=== PATIENT | female | born 1945 | race Caucasian/White ===

== ENCOUNTER → 2023-08-29 14:54 | Outpatient (REF) | payer MEDICARE, BC, SELFPAY | LOC: DHVS 14:54 | PROVIDERS: ATTENDING PHYSICIAN Surgery Vascular Surgery; FAMILY PHYSICIAN Internal Medicine Geriatric Medicine | DX: I77.9 Disorder of arteries and arterioles, unspecified (principal) | CPT/HCPCS: 36415; 93922; 93925 ==

== ENCOUNTER → 2023-11-29 13:39 | Outpatient (REF) | payer MEDICARE, BC, SELFPAY | LOC: HWRAD 13:39 | PROVIDERS: ATTENDING PHYSICIAN Podiatrist Foot & Ankle Surgery; FAMILY PHYSICIAN Internal Medicine Geriatric Medicine | DX: M19.072 Primary osteoarthritis, left ankle and foot (principal); M20.42 Other hammer toe(s) (acquired), left foot | CPT/HCPCS: 73630 ==

== ENCOUNTER → 2023-12-14 14:02 | Outpatient (REF) | payer MEDICARE, BC, SELFPAY | LOC: RAD 14:02 | PROVIDERS: ATTENDING PHYSICIAN Registered Nurse; FAMILY PHYSICIAN Internal Medicine Geriatric Medicine | DX: I77.9 Disorder of arteries and arterioles, unspecified (principal) | CPT/HCPCS: 93922; 93925 ==

== ENCOUNTER 2024-03-18 12:41 | Emergency (ER) | payer MEDICARE, BC, SELFPAY ==
[2024-03-18 12:44] VITALS: BP 126/68
[2024-03-18 13:47] VITALS: BMI 27.3
--- NOTE | 2024-03-18 13:51 | ED.GENMED ---
History of Present Illness
General
Chief Complaint: Fall
Source: patient and family (sister with her)
Exam Limitations: none
Time Seen by Provider: 03/18/24 13:02
Nursing documentation reviewed up to this point in time: agreed with
History of Present Illness
History of Present Illness:
78yo female from [place] is here with her sister who states pt was confused for a short period this a[place]m. [place] the [place]. Pt remembers feeling confused, denies feeling confused now. Sister agrees, she's back to 'normal. \\' Pt
denies fever/chills. Denies SOB, CP, abd pain. Denies n/v/c. Had one episode diarrhea 2 days ago then few little squirts since (on Augmentin).
Is being treated for sores on her toes, followed by VN 3 times a week: Was on Doxycycline 100 mg BID for 7 days, stopped after 5 days when toe wound cx came back sensitive to Augmentin and has had total of 4 doses Augmentin.
Past History
Past History
ED Past Medical History: GERD, HTN, Hypercholesterolemia, IDDM and Other (Rheumatoid arthritis)
ED Past Surgical History: Orthopedic
Social History
Tobacco: Non-smoker
Alcohol: None
Personal: Single
Living: alone ([facility])
Family History
Family History: Other (Nonsignificant)
Review of Systems
Review of Systems
Allergies reviewed?: Yes
All Other Systems: ROS reviewed and negative except as documented in HPI and ROS
Constitutional: Denies fever, fatigue or chills
Respiratory: Denies trouble breathing
Cardiac: Denies chest pain or syncope
ABD/GI: Reports diarrhea; Denies abdominal pain, nausea, vomiting or anorexia
: Denies dysuria, frequency, flank pain, incontinence, difficulty voiding or urgency
Musculoskeletal: Denies edema
Skin: Reports other (wounds toes both feet)
Neurological: Denies dizzy, headache, weakness or numbness
Phy Exam
Physical Exam
Physical Exam:
GENERAL: No acute distress. A&Ox3.
CONSTITUTIONAL: Afebrile.
EYES: PERRL, conjunctivae normal
ENMT: moist mucus membranes, Pharynx nl
RESPIRATORY: Regular respirations, nonlabored, lungs clear.
CARDIOVASCULAR: Regular rate and rhythm, no murmurs, no rubs.
GI: Soft, nontender, normal BS
MUSCULOSKELETAL: No spinal bony tenderness. No edema. Moves with ease. Well perfused.
SKIN: Warm, dry, pink. Dressing intact toes.
PSYCH: Normal mood and affect. Well kept, interactive and appropriate
NEUROLOGIC: Awake, alert and oriented. No focal neurological deficits
Course
Orders/Labs/Results
Orders:
Orders
03/18/24 14:09
Complete Blood Count/With Diff Urgent
Comprehensive Metabolic Panel Urgent
Urinalysis Reflex To Culture Urgent
Date Specimen was Collected: 03/18/24
Time Specimen was Collected: 14:07
03/18/24 14:56
CT Head W/o Iv Contrast Urgent
Comment:
Reason For Exam: episode confusion, hit head/fall 16 da ago, no ac
Abnormal Lab Results
03/18/24
14:09
RBC 4.03 L 10^6/uL
(4.20-5.40)
MCH 33.3 H pg
(27.0-31.0)
MPV 11.4 H fL
(7.4-10.4)
Absolute Neuts (auto) 8.1 H 10^3/uL
(1.4-6.5)
Absolute Lymphs (auto) 1.0 L 10^3/uL
(1.2-3.4)
Absolute Monos (auto) 0.7 H 10^3/uL
(0.1-0.6)
Neutrophils % 78.9 H %
(42.2-75.2)
Lymphocytes % 10.0 L %
(20.5-51.1)
BUN 18 H mg/dl
(7-17)
Glucose 275 H mg/dl
(70-99)
AST 44 H U/L
(14-36)
ALT 76 H U/L
(0-35)
Total Protein 6.2 L g/dl
(6.3-8.2)
Urine Glucose 3+ A
(Negative)
03/18/24 14:09
03/18/24 14:09
Vital Signs
Initial and Last Documented VS:
Initial Vital Signs
Temp Pulse Resp BP Pulse Ox
98.0 F 83 16 126/68 98
03/18/24 12:44 03/18/24 12:44 03/18/24 12:44 03/18/24 12:44 03/18/24 12:44
Last Documented Vital Signs
Temp Pulse Resp BP Pulse Ox
98.0 F 83 16 126/68 98
03/18/24 12:44 03/18/24 12:44 03/18/24 12:44 03/18/24 12:44 03/18/24 12:44
MDM/Problems Addressed
MDM/Problems Addressed:
78yo female from [place] is here with her sister who states pt was confused for a short period this a.m. thinking [place] was [place] the mall. Pt remembers feeling confused, denies feeling confused now. Sister agrees, she's back to 'normal. \\' Pt
denies fever/chills. Denies SOB, CP, abd pain. Denies n/v/c. Had one episode diarrhea 2 days ago then few little squirts since (on Augmentin).
Is being treated for sores on her toes, followed by VN 3 times a week: Was on Doxycycline 100 mg BID for 7 days, stopped after 5 days when toe wound cx came back sensitive to Augmentin and has had total of 4 doses Augmentin.
Afebrile, NAD
2:30 p.m.
CBC unremarkable
CMP glucose 275, mild elevation AST/ALT, she has had this before, otherwise normal
U/A neg
Pt fell 16 days ago: slid off bed, no significant injury
Fell 14 days ago, stumbled backwards and lost balance as she sometimes does, hit right side of head 14 days ago. No LOC, pushed her call button and staff helped her up, no significant injury
Not anticoagulated
Will check head CT
4:[address]: no acute finding
Pt stable for discharge
Ambulating steadily in room
Sister will take her home.
Pt has appointment with Neurology Dr. Noel in Nov for 'mild cognitive decline' per her sister
*Critical Care Note
Total Time (30-74mins, 75-104mins- exclusive of procedures): Not Applicable
ED Attending Note
-
Portions of this chart may have been created with voice recognition software.� Occasional wrong word or��sound alike� substitutions may have occurred due to the inherent limitations of voice recognition software.
Discharge Plan
Departure
Patient Disposition: Home (Routine Discharge)
Date of Disposition: 03/18/24
Time of Disposition: 16:48
Patient with high blood pressure during this ER visit?: No
Condition: Good
Discharge Problem:
Episode of confusion
Instructions: Preventing falls in adults
Prescriptions:
No Action
insulin aspart U-100 [Novolog FlexPen U-100 Insulin] 300 UNITS/3 ML insulin pen
34 units SC BID@0800,1200
duloxetine 60 MG capsule,delayed release(DR/EC)
60 mg PO DAILY
Actemra
1 dose IV Q4W
latanoprost 0.005 % Drops
1 drp BOTH EYES HS
cholecalciferol (vitamin D3) [Vitamin D3] 25 mcg (1,000 unit) Tablet
25 mcg PO QPM
insulin glargine [Lantus U-100 Insulin] 1,000 UNITS/10 ML solution
30 units SC HS
insulin aspart U-100 [Novolog FlexPen U-100 Insulin] 100 unit/mL (3 mL) Insulin Pen
36 unit SC QPM
atorvastatin 10 mg Tablet
10 mg PO QPM Qty: 90 0RF
losartan 50 mg Tablet
50 mg PO DAILY
methylprednisolone 2 mg Tablet
2 mg PO DAILY
naproxen sodium [Aleve] 220 mg Tablet
220 mg PO [id number] PRN (Reason: mild pain)
dorzolamide 2 % Drops
1 drp BOTH EYES BID
pregabalin 150 mg Capsule
150 mg PO BID
aspirin 81 mg tablet,delayed release (DR/EC)
81 mg PO NOON
Referrals:
Madison Weinstein MD [Family Provider] -
Activity Restrictions/Additional Instructions:
As we discussed, nothing worrisome in your workup here today.
You may benefit from using a walker or cane to prevent falling
Interventions
Interventions:
*Risk Screen - Suicide Last Done: 03/18/24 13:47
*General Assessment Last Done: 03/18/24 13:47
*Neglect/Abuse Screening Last Done: 03/18/24 13:47
ED- Fall Risk Assessment Last Done: 03/18/24 14:23
*Nursing Disposition Last Done: 03/18/24 17:04
ED- Neurological Assessment Last Done: 03/18/24 13:47
Discharge Date and Time
Discharge Date/Time: 03/18/24 17:06
Print Language: ROMANIAN
[2024-03-18 14:30] LABS: Urine Albumin Negative (Neg - Trace); Urine Bilirubin Negative (Negative); Urine Character Clear (Clear); Urine Color Yellow; Urine Glucose 3+ (Negative); Urine Ketone Negative (Negative); Urine Leukocyte Negative (Negative); Urine Nitrite Negative (Negative); Urine Occult Blood Negative (Negative); Urine Specific Gravity 1.015 (<1.030); Urine Urobilinogen Negative (Neg - 1+)
[2024-03-18 14:35] LABS: % Basophils 0.7 % (0-2); % Eosinophils 3.1 % (0-6); % Immature Granulocytes 0.2 % (0-0.5); % Monocytes 7.1 % (1.7-9.3); % Neutrophils 78.9 % (42.2-75.2); Absolute Basophils 0.1 10^3/uL (0-0.2); Absolute Eosinophils 0.3 10^3/uL (0-0.7); Absolute Monocytes 0.7 10^3/uL (0.1-0.6); Absolute Neutrophils 8.1 10^3/uL (1.4-6.5); Hematocrit 39.9 % (37.0-47.0); Hemoglobin 13.4 g/dL (12.0-16.0); Mean Corp Hgb Conc. 33.6 g/dL (33.0-37.0); Mean Corpuscular Hgb 33.3 pg (27.0-31.0); Mean Platelet Volume 11.4 fL (7.4-10.4); Nucleated Red Blood Cells % 0 %; Platelet Count 162 10^3/uL (130-400); Red Blood Cell Count 4.03 10^6/uL (4.20-5.40); Red Cell Dist. Width 14.2 % (11.5-14.5); White Blood Cell Count 10.3 10^3/uL (4.8-10.8)
[2024-03-18 14:39] LABS: ALT (SGPT) 76 U/L (0-35); AST (SGOT) 44 U/L (14-36); Albumin 3.9 g/dl (3.5-5.0); Alkaline Phosphatase 110 U/L (38-126); Blood Urea Nitrogen 18 mg/dl (7-17); Calcium 9.4 mg/dl (8.4-10.2); Carbon Dioxide 30 mmol/L (22-30); Chloride 103 mmol/L (98-107); Estimated Creatinine Clearance 65 ml/min; Glucose 275 mg/dl (70-99); Potassium 3.9 mmol/L (3.5-5.1); Sodium 142 mmol/L (135-145); Total Bilirubin 0.8 mg/dl (0.2-1.3); Total Protein 6.2 g/dl (6.3-8.2); eGFR > 60.00
== END 2024-03-18 17:06 | disposition home or self-care (01) ==
LOC: EMR 12:41
PROVIDERS: Registered Nurse; EMERGENCY PHYSICIAN Emergency Medicine; FAMILY PHYSICIAN Internal Medicine Geriatric Medicine
DX: R41.0 Disorientation, unspecified (principal); K21.9 Gastro-esophageal reflux disease without esophagitis; I10 Essential (primary) hypertension; E78.00 Pure hypercholesterolemia, unspecified; E11.9 Type 2 diabetes mellitus without complications; M06.9 Rheumatoid arthritis, unspecified
CPT/HCPCS: 99284; 70450; 80053; 81003; 85025

== ENCOUNTER 2024-04-15 05:22 | Emergency (ER) | payer MEDICARE, BC, SELFPAY ==
[2024-04-15 05:28] VITALS: BP 169/98
[2024-04-15 05:35] VITALS: BMI 27.0
--- NOTE | 2024-04-15 07:08 | ED.GENMED ---
History of Present Illness
General
Chief Complaint: Nose Bleed
Source: patient
Time Seen by Provider: 04/15/24 06:13
History of Present Illness
History of Present Illness:
78-year-old female presents to the emergency room complaining of nosebleed. Patient has had 3 episodes of epistaxis over the past 24 hours. Blood coming from her right nare. She does not take any anticoagulants. She does not recall any trauma.
Past History
Past History
ED Past Medical History: GERD, HTN, Hypercholesterolemia, IDDM and Other (Rheumatoid arthritis)
ED Past Surgical History: Orthopedic
Social History
Tobacco: Non-smoker
Alcohol: None
Personal: Single
Living: alone ([facility])
Family History
Family History: Other (Nonsignificant)
Phy Exam
Physical Exam
Physical Exam:
General: Awake, Alert, Oriented X3. No acute distress.
Vitals: unremarkable
Head: Atraumatic
Eyes: Pupils equal, EOMI
Throat: Airway intact, no exudates
Nose: Area of punctate bleeding noted anterior right septum.
Neck: Trachea midline
Lungs: Clear and equal b/l
Heart: Regular rate, no murmurs
Neuro: Grossly nonfocal
Skin: Warm, dry, no rash
Extremities: pulses equal b/l, no edema
Course
Vital Signs
Initial and Last Documented VS:
Initial Vital Signs
Temp Pulse Resp BP Pulse Ox
97.8 F 77 19 169/98 98
04/15/24 05:28 04/15/24 05:28 04/15/24 05:28 04/15/24 05:28 04/15/24 05:28
Last Documented Vital Signs
Temp Pulse Resp BP Pulse Ox
97.8 F 72 18 156/86 97
04/15/24 05:28 04/15/24 08:21 04/15/24 08:21 04/15/24 08:21 04/15/24 08:21
Procedures
Nosebleed
Drug treatment: Lidocaine and Epinephrine
Treatment: local pressure applied and Silver nitrate cautery
Post treatment bleeding: none- good control
MDM/Problems Addressed
Differential Diagnosis Includes:
Epistaxis from AVM, septal injury, posterior epistaxis
MDM/Problems Addressed:
Physical exam revealed a punctate area of bleeding noted on the septum. It was not bleeding initially but with manipulation did begin bleeding. This area was first treated with topical lidocaine and topical epinephrine. It was then treated with
silver nitrate cautery. Bleeding was stopped. Patient will follow-up with ENT. Instructed to avoid touching the area. Use direct pressure if bleeding returns.
*Pulse Oximetry
Patient hypoxic: no
*Critical Care Note
Total Time (30-74mins, 75-104mins- exclusive of procedures): Not Applicable
ED Attending Note
-
Portions of this chart may have been created with voice recognition software.� Occasional wrong word or��sound alike� substitutions may have occurred due to the inherent limitations of voice recognition software.
Discharge Plan
Departure
Patient Disposition: Home (Routine Discharge)
Date of Disposition: 04/15/24
Time of Disposition: 07:41
Patient with high blood pressure during this ER visit?: Yes
Condition: Good
Discharge Problem:
Acute anterior epistaxis
Instructions: Nosebleeds (DC)
Prescriptions:
No Action
insulin aspart U-100 [Novolog FlexPen U-100 Insulin] 300 UNITS/3 ML insulin pen
34 units SC BID@0800,1200
duloxetine 60 MG capsule,delayed release(DR/EC)
60 mg PO DAILY
Actemra
1 dose IV Q4W
latanoprost 0.005 % Drops
1 drp BOTH EYES HS
cholecalciferol (vitamin D3) [Vitamin D3] 25 mcg (1,000 unit) Tablet
25 mcg PO QPM
insulin glargine [Lantus U-100 Insulin] 1,000 UNITS/10 ML solution
30 units SC HS
insulin aspart U-100 [Novolog FlexPen U-100 Insulin] 100 unit/mL (3 mL) Insulin Pen
36 unit SC QPM
atorvastatin 10 mg Tablet
10 mg PO QPM Qty: 90 0RF
losartan 50 mg Tablet
50 mg PO DAILY
methylprednisolone 2 mg Tablet
2 mg PO DAILY
naproxen sodium [Aleve] 220 mg Tablet
220 mg PO [id number] PRN (Reason: mild pain)
dorzolamide 2 % Drops
1 drp BOTH EYES BID
pregabalin 150 mg Capsule
150 mg PO BID
aspirin 81 mg tablet,delayed release (DR/EC)
81 mg PO NOON
Referrals:
Aura Flores MD [Family Provider] -
Yogesh Dowling MD [Active] -
Activity Restrictions/Additional Instructions:
Please follow up with ENT doctor. The site of bleeding is toward the front of the septum on the right. This is very susceptible to rubbing or picking so do not touch this side of your nose. If the bleeding starts again apply pressure for 20 to
30 minutes non-stop. This should control the bleeding. Return to the ER if you cannot get it to stop on your own with pressure.
Interventions
Interventions:
*Risk Screen - Suicide Last Done: 04/15/24 05:25
*General Assessment Last Done: 04/15/24 05:25
*Neglect/Abuse Screening Last Done: 04/15/24 05:25
ED- Fall Risk Assessment Last Done: 04/15/24 05:35
*ED COVID-19 Vaccine History Last Done: 04/15/24 05:25
*Nursing Disposition Last Done: 04/15/24 08:21
ED-EENT Assessment Last Done: 04/15/24 05:35
Discharge Date and Time
Discharge Date/Time: 04/15/24 08:22
Print Language: TANZANIAN
[2024-04-15 08:21] VITALS: BP 156/86
== END 2024-04-15 08:22 | disposition home or self-care (01) ==
LOC: EMR 05:22
PROVIDERS: EMERGENCY PHYSICIAN Emergency Medicine; FAMILY PHYSICIAN Internal Medicine Geriatric Medicine
DX: R04.0 Epistaxis (principal); I10 Essential (primary) hypertension; E78.00 Pure hypercholesterolemia, unspecified; E11.9 Type 2 diabetes mellitus without complications; M06.9 Rheumatoid arthritis, unspecified; K21.9 Gastro-esophageal reflux disease without esophagitis; Z79.4 Long term (current) use of insulin; Z79.82 Long term (current) use of aspirin
CPT/HCPCS: 99283; 30901

== ENCOUNTER 2024-05-06 17:09 | Inpatient (IN) | payer MEDICARE, BC, SELFPAY ==
[2024-05-06] VITALS (38 sets, daily range): BP systolic 81–163; BP diastolic 43–100
--- NOTE | 2024-05-06 10:43 | ED.GENMED ---
History of Present Illness
General
Chief Complaint: Fever
Time Seen by Provider: 05/06/24 10:32
History of Present Illness
History of Present Illness:
78-year-old female with history of hypertension hyperlipidemia as well as type 2 diabetes presents to the emergency department for evaluation of fever and altered mental status beginning this morning. Patient is profoundly encephalopathic cannot
provide any history. Per her sister she was in her normal state of health yesterday and apparently was found by nursing facility staff without close sitting in a chair in her room this morning. She does have mild underlying confusion on occasion
and had been planned to schedule a neurology visit to evaluate this further.
Past History
Past History
ED Past Medical History: GERD, HTN, Hypercholesterolemia, IDDM and Other (Rheumatoid arthritis)
ED Past Surgical History: Orthopedic
Social History
Tobacco: Non-smoker
Alcohol: None
Personal: Single
Living: alone ([facility])
Family History
Family History: Other (Nonsignificant)
Review of Systems
Review of Systems
Allergies reviewed?: Yes
All Other Systems: ROS reviewed and negative except as documented in HPI and ROS
Phy Exam
Physical Exam
Physical Exam:
GEN: Ill-appearing, somnolent
Eyes: PERRLA, EOMs intact, no scleral icterus
HENT: NCAT, oral mucosa moist
Lungs: CTAB, no wheezes, rales, rhonchi, normal chest wall excursion
Cardiac: Tachycardic, regular
Abdomen: Protuberant abdomen, nonrigid
Neuro: Somnolent, arouses to loud verbal stimulus, profoundly confused and disoriented, withdraws to pain x 4 extremities
MSK: No gross deformity or ecchymosis. No edema. No digital clubbing
Skin: No rashes, petechiae. Normal color, no pallor or jaundice.
Psych: Mildly agitated on exam but redirectable
Course
Orders/Labs/Results
Orders:
Orders
05/06/24 10:41
Straight cath- Treatment ONCE
0.9% Sodium Chloride 1000 ml [Nss] 1,000 ml IV BOLUS
Acetaminophen [Tylenol/Feverall] 975 mg RECTAL NOW STA
05/06/24 10:42
CR Chest Portable - 1 View Urgent
Comment:
Reason For Exam: sepsis
Reason Study Needs to be Portable: Patient Unstable
05/06/24 10:54
Basic Metabolic Panel Urgent
COVID-19 Antigen Urgent
Source: Nasal Swab
Comprehensive Metabolic Panel Routine
Comment: ORDER PER [id number]
Lactic Acid Q4H
Comment: CANCEL 2nd LACTIC ACID IF 1st LACTIC ACID IS LESS THAN 2
Prothrombin Time Urgent
Urinalysis Reflex To Culture Urgent
Date Specimen was Collected: 05/06/24
Time Specimen was Collected: 10:51
Urine Microscopic Reflex Cult Urgent
Blood Culture Routine
RK Source: Blood/Venous
Specimen Description:
Blood Culture Urgent
RK Source: Blood/Venous
Specimen Description:
Influenza A+B Rapid Molecular Urgent
RK Source: Nasal Swab
Specimen Description:
05/06/24 11:28
Complete Blood Count/With Diff Urgent
Manual Differential Urgent
05/06/24 12:08
CT Head W/o Iv Contrast Urgent
Comment:
Reason For Exam: AMS
05/06/24 12:31
0.9% Sodium Chloride 1000 ml [Nss] 1,000 ml IV BOLUS
05/06/24 12:46
CT Chest/abd/pel W Iv Cont Urgent
Comment:
Reason For Exam: sepsis no source
05/06/24 13:00
Electrocardiogram (*1) Urgent
Reason for Study: QTc Monitoring
EKG- Treatment ONCE
05/06/24 14:41
Acetaminophen 1000MG/100Ml [Ofirmev] 1,000 mg in 100 ml IV ONCE
Acetaminophen IV Indication:: ED Narcotic Naive Pt-ONCE
05/06/24 14:43
Piperacillin/Tazo 3.375 Gram [Zosyn] 3.375 gram in 50 ml IV NOW
05/06/24 14:49
Vancomycin [Vancocin] 1,500 mg 0.9% Sodium Chloride [Nss] 20 ml 0.9% Sodium Chloride 250 ml [Nss] 250 ml IV NOW
05/06/24 14:50
Lactic Acid Q4H
Comment: CANCEL 2nd LACTIC ACID IF 1st LACTIC ACID IS LESS THAN 2
Venous Blood Gas Urgent
%Oxygen/Room Air: 85
05/06/24 15:21
CefTRIAXone [Rocephin] 2,000 mg IV NOW STA
05/06/24 15:35
Sterile Water [Sterile Water For Injection] 20 ml .ROUTE .STK-MED
05/06/24 15:55
Acyclovir [Zovirax Injection] 800 mg 0.9% Sodium Chloride 250 ml [Nss] 250 ml IV NOW
Abnormal Lab Results
05/06/24 05/06/24 05/06/24
10:54 10:54 10:54
WBC
RBC
MCH
MPV
Abs Neuts (Manual)
Band Neutrophils
Lymphocytes (Manual)
PT 17.7 H Sec
(11.4-14.6)
VBG pH
VBG pO2
VBG HCO3
Carbon Dioxide 17 L mmol/L 17 L mmol/L
(22-30) (22-30)
BUN 22 H mg/dl 21 H mg/dl
(7-17) (7-17)
Glucose 292 H mg/dl
(70-99)
Lactic Acid
AST
ALT
Alkaline Phosphatase
Total Protein
Leukocyte Esterase Rfl
Urine Bacteria (Reflex)
Urine Glucose
05/06/24 05/06/24 05/06/24
10:54 11:28 14:50
WBC 23.7 H 10^3/uL
(4.8-10.8)
RBC 3.91 L 10^6/uL
(4.20-5.40)
MCH 33.0 H pg
(27.0-31.0)
MPV 10.9 H fL
(7.4-10.4)
Abs Neuts (Manual) 22.2 H 10^3/uL
(1.4-6.5)
Band Neutrophils 28 H %
(0-3)
Lymphocytes (Manual) 0 L %
(20-51)
PT
VBG pH 7.30 L
(7.32-7.43)
VBG pO2 182 H mmHg
(30-50)
VBG HCO3 19.2 L mmol/L
(22-27)
Carbon Dioxide
BUN
Glucose 271 H mg/dl
(70-99)
Lactic Acid 6.3 H* mmol/L 5.2 H* mmol/L
(0.7-2.0) (0.7-2.0)
AST 47 H U/L
(14-36)
ALT 72 H U/L
(0-35)
Alkaline Phosphatase 154 H U/L
(38-126)
Total Protein 6.0 L g/dl
(6.3-8.2)
Leukocyte Esterase Rfl Trace A
(Negative)
Urine Bacteria (Reflex) Few A
(Negative)
Urine Glucose Trace A
(Negative)
05/06/24 11:28
05/06/24 10:54
Vital Signs
Initial and Last Documented VS:
Initial Vital Signs
BP Pulse Ox
155/58 86
05/06/24 10:33 05/06/24 10:33
Last Documented Vital Signs
Temp Pulse Resp BP Pulse Ox
102.6 F H 132 31 152/100 97
05/06/24 13:27 05/06/24 14:45 05/06/24 14:45 05/06/24 14:30 05/06/24 14:29
Procedures
Lumbar Puncture
Indication for procedure:: Fever/encephalopathy/r/o meningitis
Procedure completed by: Edy Her PA-C
Consent form signed: No
If no, reason: Emergency procedure
Anesthesia/sedation: 1% Lidocaine
Preparation: cleaned with Hibiclens
Position: decubitis
Needle Size: 18 gauge
Needle Type: Lumbar Needle
Number of attempts: 2
Unsuccessful atempt - no CSF obtained: Unsuccessful x 2
Dressing applied to puncture site: bandaid
MDM/Problems Addressed
MDM/Problems Addressed:
78-year-old female presents with severe sepsis of unclear etiology. Initially antibiotics were not given upfront as there was concern for potential meningitis however as the patient continued to decline with increased encephalopathy and increased
work of breathing we opted to give antibiotics upfront as lumbar puncture was being attempted. Unfortunately lumbar puncture was unsuccessful x 2 performed by myself on the basis of patient's severe arthritis and body habitus. Meningitis dose
antibiotics were then given empirically. There is no clear evidence on imaging or urinalysis of clear source, she does have lower extremity foot ulcers however none of these look to be severely infected, could certainly cause her to develop
bacteremia however. Case was discussed with the patient's sister who is also her power of assistant district attorney, she will be a DNR/DNI for hospital stay. She remained tachycardic but blood pressure remained stable in the ED, lactic acid downtrending with fluid
resuscitation. Will be admitted to the hospitalist service for further management
Comment
Comment:
EKG independently interpreted by me shows normal sinus rhythm at a rate of 108 with a incomplete right bundle branch block, there is mild ST elevation in lead III as well as mild ST depression laterally that is likely an subendocardial ischemia
secondary to sepsis
*Critical Care Note
Total Time (30-74mins, 75-104mins- exclusive of procedures): 85 minutes
comment:
Critical care time: 85 minutes
Critical care time was exclusive of: Separately billable procedures, treating other patients, and teaching time
Critical care was necessary to treat or prevent imminent or life-threatening deterioration of the following conditions: Severe sepsis/septic shock
Critical care time spent personally by me on the following activities:
[x] Review of old charts
[x] Obtaining history from patient or surrogate
[x] Ordering and review of the laboratory studies
[x] Ordering and review of radiographic studies
[x] Ordering and performing treatments and interventions
[x] Patient patient's response to treatment
[x] Development of treatment plan with patient or surrogate
ED Attending Note
-
Portions of this chart may have been created with voice recognition software.� Occasional wrong word or��sound alike� substitutions may have occurred due to the inherent limitations of voice recognition software.
Discharge Plan
Departure
Patient Disposition: Admit
Date of Disposition: 05/06/24
Time of Disposition: 15:23
Admit to: IMU
Presentation/result/management discussed w/ accepting MD/DO: Hospitalist
Discharge Problem:
Severe sepsis
Prescriptions:
No Action
insulin aspart U-100 [Novolog FlexPen U-100 Insulin] 300 UNITS/3 ML insulin pen
36 units SC TID@0830,1230,1630
duloxetine 60 MG capsule,delayed release(DR/EC)
60 mg PO DAILY
latanoprost 0.005 % Drops
1 drp BOTH EYES HS
cholecalciferol (vitamin D3) [Vitamin D3] 25 mcg (1,000 unit) Tablet
25 mcg PO DAILY
insulin glargine [Lantus U-100 Insulin] 1,000 UNITS/10 ML solution
36 units SC DAILY
losartan 50 mg Tablet
50 mg PO DAILY
dorzolamide 2 % Drops
1 drp BOTH EYES BID
pregabalin 150 mg Capsule
150 mg PO BID
aspirin 81 mg tablet,delayed release (DR/EC)
81 mg PO DAILY
Ponaris Solution
1 drp INTRANASAL BID
atorvastatin 10 mg tablet
10 mg PO HS
Referrals:
Madison Weinstein MD [Family Provider] -
Interventions
Interventions:
*Risk Screen - Suicide Last Done: 05/06/24 11:35
*General Assessment Last Done: 05/06/24 11:35
*Neglect/Abuse Screening Last Done: 05/06/24 11:35
ED- Fall Risk Assessment Last Done: 05/06/24 11:35
*ED COVID-19 Vaccine History Last Done: 05/06/24 11:35
ED- Neurological Assessment Last Done: 05/06/24 11:35
ED-Skin Assessment Last Done: 05/06/24 11:35
Discharge Date and Time
Print Language: IRISH
[2024-05-06] MEDS: TYLENOL/FEVERALL 975 MG RECTAL (11:12)
[2024-05-06 11:20] LABS: INR 1.47; PT 17.7 Sec (11.4-14.6)
[2024-05-06] MEDS: NSS 1000 IV ×3 (11:34→20:13)
[2024-05-06 11:36] LABS: Blood Urea Nitrogen 22 mg/dl (7-17); Calcium 9.2 mg/dl (8.4-10.2); Carbon Dioxide 17 mmol/L (22-30); Chloride 104 mmol/L (98-107); Glucose 292 mg/dl (70-99); Sodium 137 mmol/L (135-145); eGFR > 60.00
[2024-05-06 11:48] LABS: Urine Albumin Negative (Neg - Trace); Urine Bilirubin Negative (Negative); Urine Character Clear (Clear); Urine Color Yellow; Urine Glucose Trace (Negative); Urine Ketone Negative (Negative); Urine Leukocyte Trace (Negative); Urine Nitrite Negative (Negative); Urine Occult Blood Negative (Negative); Urine Specific Gravity 1.015 (<1.030); Urine Urobilinogen Negative (Neg - 1+)
[2024-05-06 11:52] LABS: Hematocrit 38.6 % (37.0-47.0); Hemoglobin 12.9 g/dL (12.0-16.0); Mean Corp Hgb Conc. 33.4 g/dL (33.0-37.0); Mean Corpuscular Volume 98.7 fL (81.0-99.0); Mean Platelet Volume 10.9 fL (7.4-10.4); Platelet Count 156 10^3/uL (130-400); Red Blood Cell Count 3.91 10^6/uL (4.20-5.40); Red Cell Dist. Width 14.4 % (11.5-14.5); White Blood Cell Count 23.7 10^3/uL (4.8-10.8)
[2024-05-06 11:56] LABS: Urine Squamous Cell >30 /LPF (Few); Urine Urothelial Cell >30 /LPF (FEW)
[2024-05-06 11:57] LABS: Urine Bacteria Few (Negative); Urine Red Blood Cell 0-2 /HPF (0-2)
[2024-05-06 12:13] LABS: Absolute Neutrophils -Man Diff 22.2 10^3/uL (1.4-6.5); Band Neutrophils 28 % (0-3); Lymphocytes 0 % (20-51); Metamyelocytes 1 % (-); Monocytes 5 % (2-9); Platelets Checked Yes; Segmented Neutrophils 66 % (42-75)
[2024-05-06 12:14] LABS: Normal RBC Morphology Yes; Total Cells Counted 100
[2024-05-06 12:14] LABS: COVID-19 Antigen Negative (Negative)
[2024-05-06 12:25] LABS: AST (SGOT) 47 U/L (14-36); Albumin 3.7 g/dl (3.5-5.0); Alkaline Phosphatase 154 U/L (38-126); Blood Urea Nitrogen 21 mg/dl (7-17); Calcium 9.1 mg/dl (8.4-10.2); Carbon Dioxide 17 mmol/L (22-30); Chloride 103 mmol/L (98-107); Glucose 271 mg/dl (70-99); Potassium 4.3 mmol/L (3.5-5.1); Sodium 138 mmol/L (135-145); Total Bilirubin 0.8 mg/dl (0.2-1.3); eGFR > 60.00
[2024-05-06 12:27] LABS: Lactic Acid 6.3 mmol/L (0.7-2.0)
[2024-05-06 12:31] LABS: ALT (SGPT) 72 U/L (0-35)
[2024-05-06] MEDS: OFIRMEV 100 IV (14:52)
[2024-05-06] MEDS: ZOSYN 50 IV (14:58)
[2024-05-06 15:06] LABS: Venous Blood Gas B.E. -6.7 mmol/L (-4 to +4); Venous Blood Gas HCO3 19.2 mmol/L (22-27); Venous Blood Gas O2 Sat % 99.5 %; Venous Blood Gas pCO2 39 mmHg (35-48); Venous Blood Gas pO2 182 mmHg (30-50)
[2024-05-06 15:19] LABS: Lactic Acid 5.2 mmol/L (0.7-2.0)
--- NOTE | 2024-05-06 15:23 | HPS.HSE ---
Family Physician
-
Family Physician: Madison Weinstein
Chief Complaint
-
confusion
History of Present Illness
78-year-old female with history of hypertension hyperlipidemia as well as type 2 diabetes presents to the emergency department for evaluation of fever and altered mental status beginning this morning. Patient is profoundly encephalopathic cannot
provide any history. history obtained from sister. she was fine until yesterday evening. today she woke up confused and with fever.
upon arrival she was noted to have elevated wbc, lactic, tachycardia, and fever, LP tried by unsuccessful. Patient received acyclovir, ceftriaxone, Zosyn, Vanco in ER. Admitting for further further management
Medical History
Past Medical History
Past Medical History: Reports Other
Additional Past Medical History:
PAD, type 2 diabetes, obstructive sleep apnea, hypertension
Past Surgical History: Reports Other
Additional Past Surgical History:
Right knee replacement
Social History
Tobacco: Non-smoker
Alcohol: None
Drug: None
Living: Longterm
Family History
Family History: Not pertinent
Allergies / Home Medications
Allergies reflects when Allergies were last updated in [employer].
Home Medications with original date entered in [employer]
Allergy/Medication List:
Allergies
Allergy/AdvReac Type Severity Reaction Status Date / Time
No Known Allergies Allergy Verified 04/15/24 05:25
Home Medications
duloxetine 60 mg capsule,delayed release 60 mg PO DAILY 06/15/17
insulin aspart U-100 100 unit/mL (3 mL) subcutaneous pen (Novolog FlexPen U-100 Insulin aspart) 36 units SC TID@0830,1230,1630 06/15/17
cholecalciferol (vitamin D3) 25 mcg (1,000 unit) tablet (Vitamin D3) 25 mcg PO DAILY 03/03/23
latanoprost 0.005 % eye drops 1 drp BOTH EYES HS 03/03/23
insulin glargine 100 unit/mL subcutaneous solution (Lantus U-100 Insulin) 36 units SC DAILY 03/11/23
aspirin 81 mg tablet,delayed release 81 mg PO DAILY 03/18/24
dorzolamide 2 % eye drops 1 drp BOTH EYES BID 03/18/24
losartan 50 mg tablet 50 mg PO DAILY 03/18/24
pregabalin 150 mg capsule 150 mg PO BID 03/18/24
atorvastatin 10 mg tablet 10 mg PO HS 05/06/24
eucalyptus-peppermint oil in a nasal solution (Ponaris nasal solution) 1 drp intranasal BID 05/06/24
Review of Systems
-
Unable to obtain full review of systems at this time due to: Acuity
Physical Exam
Vital Signs
Vital Signs
Temp Pulse Resp BP Pulse Ox
102.6 F H 132 31 152/100 97
05/06/24 13:27 05/06/24 14:45 05/06/24 14:45 05/06/24 14:30 05/06/24 14:29
Physical Exam
General: Well Developed, Well Nourished and No Apparent Distress
HEENT: NormoCephalic, Moist mucous membranes and Atraumatic
Respiratory: Clear
Cardiac: S1/S2 and Regular Rhythm; No Murmur or Rub
GI: Soft, Non Tender, Non Distended and Normal Bowel Sounds; No Organomegaly
Rectal: Deferred by Provider
Musculoskeletal: No Clubbing, No Cyanosis and No Edema
Skin: Other (toe wounds)
Neuro: Nonfocal/grossly intact
Psych: Confused
Laboratory Results
-
05/06/24 11:28
05/06/24 10:54
Laboratory Results
PT 17.7 Sec (11.4-14.6) H 05/06/24 10:54
INR 1.47 05/06/24 10:54
Lactic Acid 5.2 mmol/L (0.7-2.0) H* 05/06/24 14:50
Total Bilirubin 0.8 mg/dl (0.2-1.3) 05/06/24 10:54
Total Bilirubin Cancelled 05/06/24 10:54
AST 47 U/L (14-36) H 05/06/24 10:54
AST Cancelled 05/06/24 10:54
ALT 72 U/L (0-35) H 05/06/24 10:54
ALT Cancelled 05/06/24 10:54
Alkaline Phosphatase 154 U/L (38-126) H 05/06/24 10:54
Alkaline Phosphatase Cancelled 05/06/24 10:54
Data Reviewed
-
Diagnostic Radiology: Report Reviewed by me
CT Scan: Report Reviewed by me
Lab Data: Labs Reviewed by me
Impression/Plan
-
# Sepsis concern for meningitis
-wbc 23.7, lactic 5.2, fever of 102, tachycardia
-UA negative,
-No CT evidence to indicate a source of infection.Mild to moderate fatty infiltration of liver.No renal or ureteral calculus. No hydronephrosis or obstructive uropathy. Renal parapelvic cyst formation. Tiny 5 mm left renal cyst.No evidence of bowel
obstruction
-head CT with Stable examination. No acute intracranial abnormality. No acute intracranial hemorrhage. Mild chronic ischemic change and mild atrophy.
-Chest x-ray with impression of Mild to moderate asymmetric opacity in the left lower lobe which appears to have mildly increased since 11/01/2018. Diagnostic possibilities are (1) mild left lower lobe pneumonia or (2) left lower lobe subsegmental
atelectasis/scarring.. Mild elevation of the right hemidiaphragm.
-Patient received a dose of acyclovir, ceftriaxone, Zosyn and Comycin ER critical view
-Continue fluids
-Continue Tylenol as needed for fever
-Blood culture sent from ER
-IR consulted for LP
-ID consulted
# Metabolic acidosis dehydration
-CO2 17, BUN 21
-normal saline continued
# Chronic LFT elevation
-AST 47, ALT 72, ALK 154
Hyperlipidemia
-Statin held
# Depression/anxiety
-Duloxetine held
# Type 2 diabetes with hyperglycemia
-Sliding scale
-Lantus 8 units at bedtime
# Essential hypertension
-Losartan heldd
# History of fibromyalgia
-Lyrica held
DVT prophylaxis
-Lovenox
# CODE STATUS
-Full code
patient is lethargic. all oral meds held. resume once patient is fully awake.
[2024-05-06] MEDS: VANCOCIN 300 ML IV (15:39)
[2024-05-06] MEDS: VANCOCIN 300 MG IV (15:39)
[2024-05-06] MEDS: ROCEPHIN 2000 MG IV (15:40)
[2024-05-06] MEDS: ZOVIRAX INJECTION 266 MG IV ×2 (16:24→22:53)
--- NOTE | 2024-05-06 16:41 | W.PN.UPDATE ---
Update Note
Progress Note Update
This is an addendum to the H&P written by Monique Arias on 05/06/2024. Patient seen and examined independently with [employer].
78-year-old female past medical history of hypertension, hyperlipidemia, GERD, diabetes, rheumatoid arthritis, presenting with fever and altered mental status starting this morning. Patient severely encephalopathic.
Urinalysis unremarkable. CT chest abdomen pelvis without any source of infection. CT head no acute abnormality. On examination her fifth left toe appears purple-colored with superficial wound. Feet are warm with pulses intact in both lower
extremities. As per daughter this look normal yesterday.
Patient clinically septic with fever of 102, heart rate of 132, leukocytosis, lactic acidosis. Source is concerning for viral/bacterial meningitis/encephalitis. LP was attempted but could not be performed. IV fluids, check blood cultures,
vancomycin/ceftriaxone, ampicillin, acyclovir. ID consulted. IR consulted for lumbar puncture.
Concern for mottling of the left fifth toe in the setting of sepsis versus osteomyelitis of left fifth toe so check x-ray of toe, wound care consulted. Consider further podiatry evaluation depending on result.
Reduce insulin from 36 to 18 units of Lantus and continue high-dose insulin sliding scale for hyperglycemia.
[2024-05-06] MEDS: NSS 500 IV (18:37)
--- NOTE | 2024-05-06 18:52 | W.PN.UPDATE ---
Update Note
Progress Note Update
patient is DNR as per sister
[2024-05-06 18:55] LABS: Venous Blood Gas B.E. -6.6 mmol/L (-4 to +4); Venous Blood Gas HCO3 19.1 mmol/L (22-27); Venous Blood Gas O2 Sat % 99.5 %; Venous Blood Gas pCO2 38 mmHg (35-48); Venous Blood Gas pH 7.31 (7.32-7.43); Venous Blood Gas pO2 132 mmHg (30-50)
[2024-05-06 19:10] LABS: Lactic Acid 4.8 mmol/L (0.7-2.0)
[2024-05-06] MEDS: LOVENOX 40 MG SC (19:18)
[2024-05-06] MEDS: AMPICILLIN 104 MG IV (19:19)
[2024-05-06] MEDS: TYLENOL/FEVERALL 650 MG RECTAL (19:46)
--- NOTE | 2024-05-06 20:08 | PHA.VAN.IN ---
Assessment
- Assessment
Renal Function: Appears similar to baseline
Maximum Temperature: 104.3
Minimum Temperature: 101.1
Concomitant Antimicrobials: Acyclovir, Ampicillin
AUC Dosing Plan
- Dosing Variables
Dosing Weight (kg): 82.3
Dosing CrCl (ml/min): 65
Vd coefficient (L/kg): 0.7
- Empiric Dosing
Initial / Loading Dose: 2000mg
Maintenance Regimen: 750mg Q12H
Estimated AUC (mcg*h/mL): 459
Estimated Peak (mcg*h/mL): 25.9
Estimated Trough (mcg/ml): 13.6
Estimated Half Life (H): 11.9
- Monitoring
No levels ordered at this time: will order labs in the next few days
Pharmacokinetics Vancomycin I
- -
Patient Age: 78
Patient Sex: Female
Vancomycin Day #: 1
Indication: Card Doffer Infection
Requesting Provider: Monique Arias/MALENA
Pertinent Antimicrobial Allergies:
NKDA
Height / Weight:
Height 5 ft 7 in
Actual Weight 82.3 kg
Pertinent Past Medical History: DM
- Vital Signs / Lab Results
Temp Pulse Resp BP Pulse Ox
101.8 F H 133 26 108/62 91
05/06/24 20:00 05/06/24 20:00 05/06/24 20:00 05/06/24 20:00 05/06/24 19:45
Lab Results - Hematology
05/06/24 05/06/24
10:54 11:28
WBC Cancelled 23.7 H
Band Neutrophils 28 H
Lab Results - Chemistry
05/06/24 05/06/24 05/06/24
10:54 10:54 10:54
BUN 22 H 21 H
Creatinine 0.8 0.8
Albumin Cancelled
05/06/24
10:54
BUN
Creatinine
Albumin 3.7
05/06/24 05/06/24 05/06/24
10:54 14:50 18:37
Lactic Acid 6.3 H* 5.2 H* 4.8 H*
Lab Results - Urine
05/06/24
10:54
Urine Nitrite (Reflex) Negative
Leukocyte Esterase Rfl Trace A
Urine WBC (Reflex) 3-5
Ur Squamous Epith Cells >30
Urine Bacteria (Reflex) Few A
Microbiology Results
05/06/24 10:54 Influenza Types A & B (DUSTIN) - Final
Nasal Swab Negative for Influenza A & B, NAAT
Negative results must be combined with clinical observations
and patient history.
Nucleic Acid Amplification test (NAAT)performed on the
[employer] platform.
--- NOTE | 2024-05-06 23:00 | PTCARENOTE ---
Received pt transfer from ED. Pt confused to person place and time, able to move all extremities but withdraws when touching them. Febrile. Sinus tach, poor capillary refill. Palpable radials, Doppler pedals and DP. LLE mottled and slightly cooler
than the right. 93% 1 Liter NC w/ diminished lung sounds throughout. Hypoactive bowel sounds in all 4Q. Clear yellow urine draining from temp sensing Yan. Several wounds on feet see worklist. NSS gtt running in right forearm. Will continue to
monitor.
[2024-05-06 23:11] LABS: INR 1.28; PT 15.9 Sec (11.4-14.6)
[2024-05-06 23:12] LABS: APTT 32.5 Sec (23.4-35.0)
[2024-05-06 23:13] LABS: Lactic Acid 3.9 mmol/L (0.7-2.0)
[2024-05-06 23:20] LABS: Blood Urea Nitrogen 23 mg/dl (7-17); Carbon Dioxide 18 mmol/L (22-30); Chloride 108 mmol/L (98-107); Estimated Creatinine Clearance 65 ml/min; Glucose 220 mg/dl (70-99); Sodium 139 mmol/L (135-145); eGFR > 60.00
[2024-05-06 23:26] LABS: Glucose - Point of Care 161 mg/dl (70-99)
[2024-05-07] VITALS (27 sets, daily range): BP systolic 96–159; BP diastolic 56–107; PULSE 115–116; O2SAT 96–97; BMI 28.2
[2024-05-07] MEDS: LANTUS 0.15 UNITS SC ×2 (00:14→23:02)
[2024-05-07] MEDS: XALATAN OPHTHALMIC SOLUTION 1 DROP BOTH EYES ×2 (00:35→23:02)
[2024-05-07] MEDS: TRUSOPT 2% OPHTHALMIC SOLUTION 1 DROP BOTH EYES ×3 (01:03→20:17)
--- NOTE | 2024-05-07 01:19 | PTCARENOTE ---
All systems reassessed. Oxygen sat 89% so raised to 3L now 93%. No other changes at this time. Will continue to monitor.
[2024-05-07] MEDS: AMPICILLIN 104 MG IV ×2 (02:39→09:33)
--- NOTE | 2024-05-07 04:00 | PTCARENOTE ---
All systems reassessed. Pt remains confused and unable to articulate clear sentences. Hygiene performed and labs drawn. Will continue to monitor.
[2024-05-07] MEDS: NSS 1000 IV ×2 (05:11→16:59)
[2024-05-07 05:12] LABS: Hematocrit 34.1 % (37.0-47.0); Mean Corp Hgb Conc. 32.3 g/dL (33.0-37.0); Mean Corpuscular Hgb 32.3 pg (27.0-31.0); Mean Platelet Volume 11.1 fL (7.4-10.4); Platelet Count 131 10^3/uL (130-400); Red Blood Cell Count 3.41 10^6/uL (4.20-5.40); Red Cell Dist. Width 14.6 % (11.5-14.5); White Blood Cell Count 19.7 10^3/uL (4.8-10.8)
[2024-05-07 05:31] LABS: ALT (SGPT) 46 U/L (0-35); AST (SGOT) 59 U/L (14-36); Albumin 2.9 g/dl (3.5-5.0); Alkaline Phosphatase 109 U/L (38-126); Blood Urea Nitrogen 24 mg/dl (7-17); Calcium 7.9 mg/dl (8.4-10.2); Carbon Dioxide 20 mmol/L (22-30); Chloride 108 mmol/L (98-107); Estimated Creatinine Clearance 65 ml/min; Glucose 223 mg/dl (70-99); Potassium 4.1 mmol/L (3.5-5.1); Sodium 141 mmol/L (135-145); Total Bilirubin 0.4 mg/dl (0.2-1.3); Total Protein 5.1 g/dl (6.3-8.2); eGFR > 60.00
[2024-05-07] MEDS: VANCOCIN 150 IV ×2 (05:42→17:15)
--- NOTE | 2024-05-07 08:12 | CON.INTV ---
Consultation
Consultation Request
Date/Time Consultation Requested: 05/06/2024
Date/Time Consultation Performed: 05/07/2024 - 0808
Requesting Provider: Dr. South
Performing Provider: Dr. Buenrostro
Reason for Consultation: Sepsis
Medical History
-
Chief Complaint: Fever/confusion
History of Present Illness:
78-year-old female non-smoker with a past medical history of ALETHEA on CPAP, history of pulmonary nodules, DM type II, RA, hypertension hyperlipidemia who presented from [facility] with fever and confusion. Symptoms started on the morning of
arrival. History was obtained from the sister as patient was a poor historian. 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 She woke up confused with a fever and then was brought to the ER for further evaluation. In the ER she was febrile to 101.1 �F,
tachycardic to 122, breathing at 20 breaths/min, BP 155/58 and saturating 86% on room air. She was placed onto 2 L/min and saturations improved to 93%. Labs showed leukocytosis to 23.7, serum bicarbonate level 17, glucose 271, lactate 6.3,
urinalysis with trace leukocyte esterase and COVID-19 antigen negative. Blood cultures were collected. CXR shows mild interstitial/airspace disease at the left lung base suspicious for pneumonia versus subsegmental atelectasis. CT head showed no
acute intracranial abnormality. CT chest, abdomen, pelvis showed no evidence doing indicate a source of infection. Her left foot was found to be painful and swollen and foot x-ray showed soft tissue swelling with possible osteomyelitis. HUMBERTO of
the left lower extremity showed severe reduction at 0.2 suggesting small vessel disease. Patient was started on antibiotics and admitted to the IMU for further care. Assisted Living Coordinator/pulmonary service is now consulted for additional
management/recommendations.
When I saw the patient this morning she was resting in bed in no acute distress on 3 L/min saturating 96%. Heart rate 111 and BP 145/81. She is confused but denies chest pain or shortness of breath. ROS is limited given her acute clinical status
with confusion.
PMHx: DM type II, RA, hypertension, hyperlipidemia, history of pulmonary nodules, severe ALETHEA
PSHx: Right TKA (03/2019), L3-4 ILESI, arteriogram
Past Medical History
Past Medical History: Other (Above as per HPI)
Past Surgical History: Other (Above as per HPI)
Social History
Tobacco: Non-smoker
Alcohol: None
Drug: None
Employment: Retired
Family History
Family History: Reviewed & Not Pertinent
Allergies / Home Medications
Allergies
Allergy/AdvReac Type Severity Reaction Status Date / Time
No Known Allergies Allergy Verified 04/15/24 05:25
Home Medications
�Medication �Instructions �Recorded �Confirmed �Last Taken �Type
duloxetine 60 mg capsule,delayed 60 mg PO DAILY 06/15/17 05/06/24 03/18/24 History
release
insulin aspart U-100 100 unit/mL 36 units SC TID@0830,1230,1630 06/15/17 05/06/24 03/18/24 History
(3 mL) subcutaneous pen (Novolog
FlexPen U-100 Insulin aspart)
cholecalciferol (vitamin D3) 25 25 mcg PO DAILY 03/03/23 05/06/24 03/17/24 History
mcg (1,000 unit) tablet (Vitamin
D3)
latanoprost 0.005 % eye drops 1 drp BOTH EYES HS 03/03/23 05/06/24 03/17/24 History
insulin glargine 100 unit/mL 36 units SC DAILY 03/11/23 05/06/24 03/17/24 History
subcutaneous solution (Lantus
U-100 Insulin)
aspirin 81 mg tablet,delayed 81 mg PO DAILY 03/18/24 05/06/24 03/17/24 History
release
dorzolamide 2 % eye drops 1 drp BOTH EYES BID 03/18/24 05/06/24 03/18/24 History
losartan 50 mg tablet 50 mg PO DAILY 03/18/24 05/06/2403/18/24 History
pregabalin 150 mg capsule 150 mg PO BID 03/18/24 05/06/24 03/18/24 History
atorvastatin 10 mg tablet 10 mg PO HS 05/06/24 05/06/24 Unknown History
eucalyptus-peppermint oil in a 1 drp intranasal BID 05/06/24 05/06/24 Unknown History
nasal solution (Ponaris nasal
solution)
Review of Systems
-
Unable to Obtain full review of systems at this time due to: Acuity
Vitals / Labs / Diagnostic Testing
Vital Signs
Temp Pulse Resp BP Pulse Ox
99.9 F 115 19 123/58 94
05/07/24 04:00 05/07/24 07:00 05/07/24 07:00 05/07/24 07:00 05/07/24 07:00
Lab Data
05/07/24 04:49
05/07/24 04:49
Laboratory Results
05/06/24 05/06/24
10:54 22:50
PT 17.7 H 15.9 H
INR 1.47 1.28
APTT 32.5
Microbiology
05/06/24 10:54 Blood/Venous Blood Culture - Preliminary
Positive culture in progress
05/06/24 10:54 Blood/Venous Gram Stain - Final
05/06/24 10:54 Blood/Venous Blood Culture - Preliminary
Positive culture in progress
05/06/24 10:54 Blood/Venous Gram Stain - Preliminary
05/06/24 10:54 Nasal Swab Influenza Types A & B (DUSTIN) - Final
Negative for Influenza A & B, NAAT
Negative results must be combined with clinical observations
and patient history.
Nucleic Acid Amplification test (NAAT)performed on the
[employer] platform.
Diagnostic Testing:
Physical Exam
-
HEENT: Normocephalic and Anicteric
Cardiovascular: S1/S2 and Peripheral Edema (negative)
Respiratory: Wheeze (negative), Rales (Bilateral), Rhonchi (negative), Non-Labored Respirations and Accessory Resp Muscle Use (negative)
GI: Soft, Non Distended, Non Tender and Normal Bowel Sounds
Neurology: Awake, Alert and Tremors (negative)
Skin: Warm, Dry and Other (Bandage along left foot)
General: Respiratory Distress (negative), Comfortable, Fever (negative), Chills (negative) and Other (confused/NAD)
Assessment
-
Assessment: 78-year-old female non-smoker with a past medical history of ALETHEA on CPAP, history of pulmonary nodules, DM type II, RA, hypertension hyperlipidemia who presented from [facility] with fever and confusion. Symptoms started on the
morning of arrival. History was obtained from the sister as patient was a poor historian. 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 She woke up confused with a fever and then was brought to the ER for further evaluation. In the ER she was febrile to
101.1 �F, tachycardic to 122, breathing at 20 breaths/min, BP 155/58 and saturating 86% on room air. She was placed onto 2 L/min and saturations improved to 93%. Labs showed leukocytosis to 23.7, serum bicarbonate level 17, glucose 271, lactate
6.3, urinalysis with trace leukocyte esterase and COVID-19 antigen negative. Blood cultures were collected. CXR shows mild interstitial/airspace disease at the left lung base suspicious for pneumonia versus subsegmental atelectasis. CT head
showed no acute intracranial abnormality. CT chest, abdomen, pelvis showed no evidence doing indicate a source of infection. Her left foot was found to be painful and swollen and foot x-ray showed soft tissue swelling with possible osteomyelitis.
HUMBERTO of the left lower extremity showed severe reduction at 0.2 suggesting small vessel disease. Patient was started on antibiotics and admitted to the IMU for further care. Assisted Living Coordinator/pulmonary service is now consulted for additional
management/recommendations.
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
Impression:
#Sepsis without shock - source seems to be left foot OM
#Left lower extremity small vessel disease
#Anemia
#Thrombocytopenia (mild)
#Acute respiratory failure with hypoxia on supplemental oxygen
#Lactic acidosis
#Metabolic acidosis with normal anion gap due to lactic acidosis
#DM type II c/b hyperglycemia (HbA1c: 7.9 on 05/07/2024)
#Transaminitis
#History of severe ALETHEA on CPAP (overall AHI: 46.9 events per hour with eris O2 saturation 81% via PSG from 03/2018)
#History of RA
#History of ovoid nodule contiguous with linear scarring in the right middle lobe lung base, unchanged from prior imaging from 2016 (per outside imaging from [place])
Plan:
- Continue with antibiotics with IV vancomycin/ceftriaxone (started 05/06/2024) s/p ampicillin 05/06 - 05/07/2024 + acyclovir on 05/06/2024
- Follow-up blood cultures from 05/06/2024 (growing GPC in chains) as well as surveillance blood cultures which were collected today (05/07)
- Wound care to left foot
- Continue to trend lactate until <2mmol/L
- Podiatry + vascular surgery consulted and recommendations appreciated
- Check echo to rule out vegetations
- trend serum HCO3 level and check VBG to assess pH and pCO2
- Maintain SpO2 >90-94%
- Restart CPAP given she has Hx of severe ALETHEA
- prn nebulized xopenex - not currently bronchospastic
- Patient has a stable right lower lobe ovoid nodule which does not need follow-up as it has been stable since 2016, as per outside imaging from [place]
- Maintain MAP>65
- Continue crystalloids with NS 0.9% at 125cc/hr
- Replete electrolytes with K>4, Mg>2
- Maintain euglycemia with goal BG 140-180; given that she is NPO, half her lantus dose and continue q6hr high-resistance ISS
- Trend H/H and transfuse if needed to keep Hb>7g/dL; kep plt>20k, unless there is concern for bleeding then keep plt>50k
- Incentive spirometer encouraged 10x per hour for at least 4 hrs a day
- DVT ppx: LMWH
Code status: DNR/DNI
Total time spent today was 78 minutes for this encounter. Time includes reviewing laboratory test/imaging results, reviewing pertinent medical records, obtaining and reviewing medical history, performing an appropriate exam, ordering medications,
tests and procedures. Time also includes documentation of this encounter, coordinating patient care and communicating with other healthcare professionals. Total time does not include separately billed tests performed on this date of service.
Data:
CT chest/abdomen/pelvis with IV contrast 05/06/2024:
No CT evidence to indicate a source of infection.
Mild to moderate fatty infiltration of liver.
No renal or ureteral calculus. No hydronephrosis or obstructive uropathy. Renal parapelvic cyst formation. Tiny 5 mm left renal cyst.
No evidence of bowel obstruction.
[facility] outpatient data:
Sleep Study:
������ Findings:�PSG/Split 04/06/18: AHI 46.9/81%; CPAP 5
PFT:
������ COMMENTS:�PFTs 03/31/18: FEV1 1.85L 75%, FVC 2.47L 75%, ratio 75. TLC 4.06L 76%, DLCO 69% (mild restriction, mild diffusion impairment).�
RADIOGRAPHIC STUDIES:
������ COMMENTS:�CT Chest 10/21/20 ([place]): no active airspace process, ovoid r lung nodule contiguous with linear scar in the RML, measuring [id number] mm, unchanged from prior reading from 2016. Left side there is similar fusiform ovoid opacity in
the lingula with dimensions of 18 x 13 mm suggesting scar.
CXR 07/29/21: focal irregularity of increased density in lingula, possible atelectasis.
CT chest 12/18/17: large consolidation in the right lower lobe consistent with pneumonia and minimal airspace disease in the right middle lobe and inferior right upper lobe; extends up to the hilum. Minimal reactive pleural fusion of the right. Marked
hepatic steatosis
[2024-05-07 08:45] LABS: Glucose - Point of Care 152 mg/dl (70-99)
--- NOTE | 2024-05-07 09:29 | CON.ID ---
Consultation
-
Date/Time Consultation Requested: 05/06/2024 1828
Date/Time Consultation Performed: 05/07/2024 0930
Requesting Provider: Dr. Griselda Bose
Performing Provider: Dr. Britney Burden
Reason for Consultation: Sepsis
Chief Complaint / Past History
Chief Complaint
Fever
History of Present Illness
History obtained from review medical records since patient is currently lethargic and confused. She is a 78-year-old female with history of diabetes mellitus, rheumatoid arthritis on biologic, chronic left toe wounds, PAD status post left lower
extremity angioplasty 2022 who presented to the hospital May 06 with acute onset of mental status change and fever. In the ED Tmax was 104.3, white count 23.7 with 28% bands, lactic acid 6.3. Attempt for LP was unsuccessful. CT of the chest
abdomen pelvis without source of infection. She was placed on acyclovir, vancomycin, ampicillin, and ceftriaxone. Admission blood cultures are now positive for GPC in chains.
Past History
Additional Past Medical History:
DM
HTN
HLD
RA on Actemra
ALETHEA
Chronic left foot wounds
PAD s/p LLE angioplasty (2022)
R 4th, 5th toes hammertoe repair (2018)
R 4th metatarsal osteo s/p resection (2019)
R TKR
Lumbar surgery
Allergy History:
No Known Allergies Allergy (Verified 04/15/24 05:25)
Medications Reviewed: Yes
Current Antibiotics:
Vancomycin
Ampicillin 1g IV q6
Ceftriaxone 2g IV q24
Acyclovir 800mg IV q8
Social History
Tobacco: Non-Smoker
Alcohol: None
Drug: None
Living: [facility]
Family History
Family History: Not Pertinent
Review of Systems
Review of Systems
Unable to obtain due to mental status change.
Vital Signs
Temp Pulse Resp BP Pulse Ox
99.9 F 115 19 123/58 94
05/07/24 04:00 05/07/24 07:00 05/07/24 07:00 05/07/24 07:00 05/07/24 07:00
Selected Entries
05/06/24
10:42
Temp max 104.3 F H
Physical Exam
Physical Exam
Constitutional: Acutely Ill
Head: Other (No frontal or max or sinus tenderness)
Eyes: No Conjunctival Hemorrhage and Sclera Anicteric
Cardiovascular: S1/S2 and Other (Tachycardic)
Pulmonary: Clear (Anteriorly)
Gastrointestinal: Soft, Non Tender, Non Distended and Normal Bowel Sounds
Genito-Urinary: Ayn and Clear Urine
Extremities: Pulses (Strong palpable pedal pulse left foot); Negative Edema
Musculoskeletal: Negative Joint Swelling or Joint Effusion (Right knee)
Skin: Negative Rash
Wound: Other (Left foot : left first dorsal met head small wound, mild necrosis, no purulence; left 2nd toe over distal joint small wound no purulence; left 5 toe erythematous, ischemic medially )
Neurological: Other (Lethargic but arousable); Negative Meningeal Signs (Neck supple)
Psychological: Confused
Lab / Diagnostic Study Results
05/07/24 04:49
05/07/24 04:49
Abs Immat Gran (auto) Cancelled 05/06/24 10:54
Absolute Neuts (auto) Cancelled 05/06/24 10:54
Absolute Lymphs (auto) Cancelled 05/06/24 10:54
Absolute Monos (auto) Cancelled 05/06/24 10:54
Absolute Basos (auto) Cancelled 05/06/24 10:54
Total Counted 100 05/06/24 11:28
Immature Gran % Cancelled 05/06/24 10:54
Neutrophils % Cancelled 05/06/24 10:54
Lymphocytes % Cancelled 05/06/24 10:54
Monocytes % Cancelled 05/06/24 10:54
Eosinophils % Cancelled 05/06/24 10:54
Basophils % Cancelled 05/06/24 10:54
Abs Neuts (Manual) 22.2 10^3/uL (1.4-6.5) H 05/06/24 11:28
Segmented Neutrophils 66 % (42-75) 05/06/24 11:28
Band Neutrophils 28 % (0-3) H 05/06/24 11:28
Lymphocytes (Manual) 0 % (20-51) L 05/06/24 11:28
PT 15.9 Sec (11.4-14.6) H 05/06/24 22:50
INR 1.28 05/06/24 22:50
Lactic Acid 4.0 mmol/L (0.7-2.0) H* 05/07/24 04:49
Ur Squamous Epith Cells >30 /LPF (Few) 05/06/24 10:54
Microbiology Results
Micro:
05/06/24 10:54 Blood Culture - Preliminary
Blood/Venous Positive culture in progress
Gram Stain - Final
05/06/24 10:54 Blood Culture - Preliminary
Blood/Venous Positive culture in progress
Gram Stain - Preliminary
05/06/24 21:36 MRSA Screen - Pending
Nose
05/06/24 10:54 Influenza Types A & B (DUSTIN) - Final
Nasal Swab Negative for Influenza A & B, NAAT
Negative results must be combined with clinical observations
and patient history.
Nucleic Acid Amplification test (NAAT)performed on the
[employer] platform.
05/06/24 CXR: There is mild stable linear interstitial or airspace disease at the left lung base which may be minimal pneumonia or subsegmental atelectasis
There is subsegmental atelectasis at the right lung base
05/06/24 CT C/A/P: No CT evidence to indicate a source of infection.
05/06/24 Left Foot XRAY: There is linear lucency traversing the second middle phalanx, which has developed since prior examination. Associated soft tissue swelling. Possible osteomyelitis, though relatively well-defined linear configuration would be
unusual. This may also be postsurgical in nature proper clinical setting.
Assessment / Plan
# GPC chains bacteremia
# Toes wounds likely source of bacteremia
# Severe sepsis
#TME
#PAD follows with vascular
-Cancel LP order
-Repeat blood cultures
-DC IV acyclovir and ampicillin
-Continue Vancomycine and ceftriaxone pending final cx data
-Ordered LE arterial duplex
-Trend fever, wbc
# Conditions INTERNET DEVELOPER
DM
HTN
HLD
RA on Actemra
ALETHEA
Chronic left foot wounds
PAD s/p LLE angioplasty (2022)
R 4th, 5th toes hammertoe repair (2019)
R 4th metatarsal osteo s/p resection (2019)
R TKR
Lumbar surgery
Care Review
Plan reviewed with: Nurse
[2024-05-07 10:06] LABS: Glycohemoglobin (HgbA1c) 7.9 % (4.0-5.6)
--- NOTE | 2024-05-07 10:30 | W.PN.HOSP.TC ---
Today's Communication/Plan
-
Continue antibiotics
Podiatry evaluation
HUMBERTO
IV fluids
Speech evaluation
Assessment / Plan
Assessment / Plan
78-year-old female presented with fever and mental status change
X-ray of the foot-linear translucency of second middle phalanx associated with soft tissue swelling. Possible osteomyelitis
CT scan of the chest abdomen pelvis-IV contrast-mild to moderate fatty liver. No source of infection.
Head CT-stable exam mild chronic ischemic change and mild atrophy
Chest x-ray-mild to moderate opacity of the left lower lobe increased. Left lower lobe pneumonia versus atelectasis versus scarring
On examination patient is confused, awake not oriented
No neck stiffness
Right wrist mild tenderness with touching the whole hand
Right second toe dorsal ulceration with mild edema
Abdomen soft and nontender
# Sepsis Gram-positive cocci in blood cultures
Source unclear
But
Repeat blood cultures ordered
LP was unsuccessful in the ER, But looks like toe is the source
Vancomycin and ceftriaxone to be continued
Continue IV fluids
Repeat Blood cultures have been sent
Also has pain on the right wrist. Check x-ray
Check HUMBERTO
ID eval appreciated
# TME due to above
# Metabolic acidosis-lactic acidosis-follow trend
# Peripheral artery disease with left lower extremity angioplasty 2022 with chronic left foot wounds
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
# Diabetes normally uses Lantus 36 units and NovoLog 36 units AC
Lantus 15 units given along with sliding scale coverage now
Hemoglobin A1c pending
# Rheumatoid arthritis on Actemra
# Immunocompromised
# Hypertension-Hold losartan
# Chronic elevation of the LFTs
# Hyperlipidemia-Hold statin
# Depression anxiety-hold duloxetine as n.p.o.
# History of fibromyalgia-on Lyrica-hold
# Hypoalbuminemia
# Cognitive dysfunction-worse in the past few months per sister
# History of melanoma surgery 2015
# Sleep apnea-noncompliant with CPAP
# DVT prophylaxis-Lovenox
# DNR
D/W RN at bed side
Spoke to sister and updated .
Time spent 51 min
Anticipated Discharge: > 48 hours
Subjective/Interval History
-
Date of Service: May 07, 2024
Objective Data
-
Labs:
Laboratory Results
05/06/24 05/06/24 05/07/24
22:50 22:51 04:49
WBC 19.7 H
Hgb 11.0 L
Hct 34.1 L
Plt Count 131
PT 15.9 H
INR 1.28
APTT 32.5
Sodium 139 141
Potassium 4.0 4.1
Chloride 108 H 108 H
Carbon Dioxide 18 L 20 L
BUN 23 H 24 H
Creatinine 0.8 0.8
Glucose 220 H 223 H
Calcium 8.0 L 7.9 L
Total Bilirubin 0.4
AST 59 H
ALT 46 H
Alkaline Phosphatase 109
Vital Signs:
Vital Signs
Temp Pulse Resp BP Pulse Ox
99.9 F 115 19 123/58 95
05/07/24 04:00 05/07/24 07:00 05/07/24 07:00 05/07/24 07:00 05/07/24 09:57
I&O
05/06/24 05/07/24 05/08/24
06:59 06:59 06:59
Output Total 475 / 475
Balance -475 / -475
[2024-05-07] MEDS: ZOVIRAX INJECTION IV (10:42)
--- NOTE | 2024-05-07 11:01 | PHA.VAN.FU ---
Vancomycin Assessment / Plan
- Assessment
Renal Function: Stable
WBC's are: Trending Up (23.7->19.7)
In the past 24 hrs, patient has been: Febrile
Concomitant Antimicrobials: ceftriaxone
- Dosing Plan
Continue: vancomycin 750 mg q12h - first maint dose 05/07/24 0600
- Monitoring Plan
No level(s) ordered at this time: consider levels after Tues jose dose -4th maint.
- Follow Up
Pharmacy will continue to follow.
Vancomycin Follow UP
- -
Patient Age: 78
Patient Sex: Female
Vancomycin Day #: 2
Indication: Community Sports Coordinator Infection
Requesting Provider: Monique Arias/MALENA
Pertinent Antimicrobial Allergies:
NKDA
Height / Weight:
Height 5 ft 7 in
Actual Weight 81.5 kg
Pertinent Past Medical History: DM
- Vital Signs / Lab Results
Temp Pulse Resp BP Pulse Ox
100.4 F H 115 19 123/58 95
05/07/24 07:48 05/07/24 07:00 05/07/24 07:00 05/07/24 07:00 05/07/24 09:57
Lab Results - Hematology
05/06/24 05/06/24 05/07/24
10:54 11:28 04:49
WBC Cancelled 23.7 H 19.7 H
Band Neutrophils 28 H
Lab Results - Chemistry
05/06/24 05/06/24 05/06/24
10:54 10:54 10:54
BUN 22 H 21 H
Creatinine 0.8 0.8
Estimated Creat Clear
Albumin Cancelled
05/06/24 05/06/24 05/07/24
10:54 22:51 04:49
BUN 23 H 24 H
Creatinine 0.8 0.8
Estimated Creat Clear 65 65
Albumin 3.7 2.9 L
05/06/24 05/06/24 05/06/24
10:54 14:50 18:37
Lactic Acid 6.3 H* 5.2 H* 4.8 H*
05/06/24 05/07/24
22:50 04:49
Lactic Acid 3.9 H 4.0 H*
Lab Results - Urine
05/06/24
10:54
Urine Nitrite (Reflex) Negative
Leukocyte Esterase Rfl Trace A
Ur Squamous Epith Cells >30
Microbiology Results
05/06/24 10:54 Blood Culture - Preliminary
Blood/Venous Positive culture in progress
Gram Stain - Final
05/06/24 10:54 Blood Culture - Preliminary
Blood/Venous Positive culture in progress
Gram Stain - Preliminary
05/06/24 10:54 Influenza Types A & B (DUSTIN) - Final
Nasal Swab Negative for Influenza A & B, NAAT
Negative results must be combined with clinical observations
and patient history.
Nucleic Acid Amplification test (NAAT)performed on the
[employer] platform.
[2024-05-07 11:06] LABS: Lactic Acid 3.2 mmol/L (0.7-2.0)
--- NOTE | 2024-05-07 12:46 | W.CS.POD ---
Consult Summary - Podiatry
-
78 yo female seen in ICU ,admitted with septicemia and LT foot cellultis, She resident at [facility]. She has H/o Diabetes on Insulin and H/O RA, PAD with vascular procedures done in [address] Yan, H/o chronic LT foot wounds has been
treated by Dr. Brandi Adrian. She was doing very well till last Tuesday, She developed acute mental status changes and fever, so has been admitted in ICU and on IV abx, improved WBC count from 23.7 to 19.7, Patient still lethargic and most of the
h/o obtained from her sister at her side Mary, and from the chart review. LT foot wound on her Rt big toe dorsal aspect and LT 2nd toe dorsal aspect ulcer and LT 5th toe dorsal aspect also with ulcer and LT 5th toe dusky discoloration noted.
Reviewed PMH, meds and allergies
Exam ; palpable Dp b/l feet.
Left foot 1,2,5th dorsal digits with ulcerations, no local purulence noted, no palpable bone or any signs of abscess noted.
LT foot minimal edema with puple dusky discoloration to the toe noted.
No signs of any crepitus felt to the LT foot
Xray Lt foot shows There is linear lucency traversing the second middle phalanx.
HUMBERTO'S reviewed shows diminished toe indices.
Plan : Cont IV abx per ID
Will request vascular surgery evaluation.
Discussed with her sister at her bedside about possible diabetic small vessel disease and ischemic changes to the LT 5th toe .
Will monitor the LT 5th toe closely .
I have reached out to Dr. Adrian ( patients animal scientist ).
Will follow
[2024-05-07 13:02] LABS: Glucose - Point of Care 195 mg/dl (70-99)
--- NOTE | 2024-05-07 13:07 | PTOTSP ---
Dysphagia Evaluation
Patient with altered mentation impacting pre-feeding skills and limiting full swallowing evaluation. Aspiration risk is high. Oral PO/oral medications inappropriate at this time.
Recommend:
1. NPO; consider temporary non-oral means
2. Medications via non-oral means
3. Oral care 3x daily with strict aspiration precautions
4. Aspiration Risk Hydration Protocol - hold.
5. Dysphagia therapy at the acute care level.
[2024-05-07] MEDS: NOVOLOG FLEXPEN-HIGH RESISTANCE 2 UNITS SC ×2 (13:21→18:19)
--- NOTE | 2024-05-07 13:24 | CM ---
CM following re: discharge planning.
Reviewed pt's chart, met with pt and pt's sister Mary at bedside.
pt is a 78 year old female, admitted with primary dx of Sepsis.
Per sister, pt has been living at [facility] independent apartment for 6 years and as of March of this year pt moved to personal care unit. Per sister, has no children, ambulates with a walker, has been experiencing difficulties with
walking for the past 2 weeks, has a transport chair. Per sister, she feels that pt will need to go to a SNF upon the discharge and she preferred [facility].
PT and OT will evaluate the pt to determine a level of care at discharge. A referral to [facility] made.
PCP: Madison Resendez
Pharmacy: [facility].
d/C plan: [facility] SNF when medically stable.
CM will follow with discharge plan updates as hospitalization progresses
--- NOTE | 2024-05-07 13:43 | CON.VAS ---
Addendum entered and electronically signed by Colin Yan III, MD 05/07/24 17:31:
This patient was seen and examined with LORE Kelly. I agree with the history and physical exam as well as the assessment and plan. I have the following additions:
Known to me from prior left lower extremity endovascular intervention in 2022
Now with nonhealing wounds on the left toes with associated ischemic changes
Admitted to the ICU with sepsis
On physical examination she is chronically ill-appearing
Morbidly obese
Left foot as per clinical image in the chart she has a palpable dorsalis pedis pulse
I reviewed my prior arteriogram from February 2023 which demonstrates severe tibial artery disease.
I reviewed her noninvasive vascular studies today which show severely reduced TBI of 0.2 suggesting the presence of small vessel occlusive disease as well
Will review operative plan for the foot with podiatry
May benefit from updated arteriogram for limb preservation efforts
Continue antibiotics
Will follow
Call with clinical questions or concerns
Signed:
Colin Yan III, MD
[facility] Vascular Surgery
[phone] (cell)
Original Note:
Consultation
Consultation Request
Date/Time Consultation Performed: 05/07/2024 2:45 PM
Requesting Provider: Hospitalist
Performing Provider: Britney Fontenot IMPREGNATOR AND DRIER HELPER-C for Colin Yan III
Reason for Consultation: BL lower extremity wounds
Medical History
-
Chief Complaint: Altered mental status
History of Present Illness:
This is a 78-year-old female significant past medical history for PAD, type 2 diabetes, obstructive sleep apnea, hypertension who presented to [facility] from [facility] when staff noted she was febrile with
altered mental status. She is known to our surgical group as Dr. Colin Yan III performed shockwave lithotripsy and balloon angioplasty to peroneal artery stenosis on 03/11/2024. Patient is pleasant but unable to participate in HPI, she answers
no or okay to all and every question. HPI is contributed by chart review. Per ED records patient sister's noted patient was at baseline mental status on 05/05/2024. Per outside wound care notes bilateral lower extremity foot wounds have been
reoccurring intermittently since 2018. She was seen in our vascular surgery office in January of 2024, where wounds were noted to be stable with no evidence of necrosis. Pictures of wounds below.
Past Medical History
Past Medical History: Other (PAD, type 2 diabetes, obstructive sleep apnea, hypertension)
Past Surgical History: Other (Right knee replacement)
Social History
Tobacco: Non-Smoker
Alcohol: None
Drug: None
[facility]
Allergies / Home Medications
Allergy/AdvReac Type Severity Reaction Status Date / Time
No Known Allergies Allergy Verified 04/15/24 05:25
�Medication �Instructions �Recorded �Confirmed �Type
duloxetine 60 mg capsule,delayed 60 mg PO DAILY 06/15/17 05/06/24 History
release
insulin aspart U-100 100 unit/mL 36 units SC TID@0830,1230,1630 06/15/17 05/06/24 History
(3 mL) subcutaneous pen (Novolog
FlexPen U-100 Insulin aspart)
cholecalciferol (vitamin D3) 25 25 mcg PO DAILY 03/03/23 05/06/24 History
mcg (1,000 unit) tablet (Vitamin
D3)
latanoprost 0.005 % eye drops 1 drp BOTH EYES HS 03/03/23 05/06/24 History
insulin glargine 100 unit/mL 36 units SC DAILY 03/11/23 05/06/24 History
subcutaneous solution (Lantus
U-100 Insulin)
aspirin 81 mg tablet,delayed 81 mg PO DAILY 03/18/24 05/06/24 History
release
dorzolamide 2 % eye drops 1 drp BOTH EYES BID 03/18/24 05/06/24 History
losartan 50 mg tablet 50 mg PO DAILY 03/18/24 05/06/24 History
pregabalin 150 mg capsule 150 mg PO BID 03/18/24 05/06/24 History
atorvastatin 10 mg tablet 10 mg PO HS 05/06/24 05/06/24 History
eucalyptus-peppermint oil in a 1 drp intranasal BID 05/06/24 05/06/24 History
nasal solution (Ponaris nasal
solution)
Review of Systems
-
Unable to obtain full review of systems at this time due to: Dementia
Physical Exam
Vital Signs
Temp Pulse Resp BP Pulse Ox
100.4 F H 109 25 145/81 96
05/07/24 07:48 05/07/24 13:15 05/07/24 13:15 05/07/24 13:00 05/07/24 13:15
Lab Results
05/07/24 04:49
05/07/24 04:49
Physical Exam
General: No Apparent Distress
HEENT: Normocephalic, Anicteric and Atraumatic
Cardiac: Negative JVD
GI: Soft, Non Tender and Non Distended
Musculoskeletal: No Edema
Skin: Other (Left hand and digits with with dusky and cool coloration, bilateral radial pulse +2)
Neuro: Awake and Other (Cannot recall name, birthdate, place, or time. Answers no to all questions)
Pulses: Bilateral Dorsalis Pedis: +2 and Bilateral Posterior Tibial: +2
Assessment / Plan
-
Assessment: 78-year-old female admitted with sepsis, with history of peripheral arterial disease and chronic wounds
Plan:
Could consider angiogram but unlikely to provide additional benefits given she has palpable bilateral DP pulses, surgical plan per attending Dr. Colin Yan, he will review case with maintenance job titles Dr. Clayton.
[2024-05-07] MEDS: LACTATED RINGERS 250 IV (14:02)
--- NOTE | 2024-05-07 14:23 | PTCARENOTE ---
Pt received in bed @ 0700. Disoriented. Garbled confused speech. Generalized weakness. Unable to orient to hospital or year. Received in restraints in place; restraints removed. Bed alarm in place. Sinus tach with PVC's on clinical research monitor. +1
pitting B/L LE edema. +2 right hand edema. Pt expresses pain at right hand when touched. Warm compress provided. 96% on 3L NC. Lungs diminished. (+) bowel sounds. Round obese belly. Pt incontinent of stool. NPO; failed bedside swallow eval. Yan
catheter draining rodo urine. NSS @ 125 ml/hr. Lactic acid resulted 3.9. New order to trend lactic and give LR 250ml bolus x1 now.
--- NOTE | 2024-05-07 15:08 | WOUNDNOTE ---
L 5TH TOE
--- NOTE | 2024-05-07 15:08 | WOUNDNOTE ---
L 5TH TOE
--- NOTE | 2024-05-07 15:09 | WOUNDNOTE ---
L DORSAL GREAT AND 2ND TOE
--- NOTE | 2024-05-07 15:09 | WOUNDNOTE ---
R 2ND TOE DORSAL
--- NOTE | 2024-05-07 15:18 | WOUNDNOTE ---
WON RN note: Patient admitted with sepsis.
See H&P for complete history. Lives at [place].
PMH: IDDM,RA,HTN,GERD and obesity.
Wound Location and type/assessment: Patient admitted with: wounds on toes, diabetic vs vascular and R heel unstageable PI, dry flat eschar. L 5th toe cyanotic, 1st and 2nd toe with full thickness ulcers, yellow slough mixed with pink, redness
surrounding. L heel is blanchable red. R 2nd toe dorsal with shallow ulcer, pink base. Nurse assisted with lifting legs for assessment, confirmed sacrum is intact. + palpable pedal pulses and skin warm and dry. Vascular in to see patient today, will
review report.
Appetite: NPO.
Pressure redistribution devices in place: [employer] air bed, keep on air mattress if transferred. Can use [facility] air bed, call [employer] at [phone]. Air cushion on pillow under both calves to offload heels.
Plan: Xeroform and dry dressing to L toes, silicone foam to R 2nd toe q other day. Adhesive foams applied to heels.
Will confirm orders with hospitalist and updated nurse.
Updated care plan and will follow along peripherally and assist as needed.
Note to case management of equipment requested for discharge: TBD
Recommend follow up at wound care center upon discharge.
[2024-05-07 16:15] LABS: Lactic Acid 2.7 mmol/L (0.7-2.0)
[2024-05-07] MEDS: ROCEPHIN 2000 MG IV (17:12)
[2024-05-07] MEDS: LOVENOX 40 MG SC (17:12)
--- NOTE | 2024-05-07 17:30 | W.CS.POD ---
Consult Summary - Podiatry
-
Consultation
Consultation Request
Date/Time Consultation Performed: 05/07/2024 4:45 PM
Requesting Provider: Hospitalist/Dr Bose
Performing Provider: Brandi Adrian DPM
Reason for Consultation: BL lower extremity wounds
Medical History
-
Chief Complaint: Altered mental status/sepsis
History of Present Illness:
This is a 78-year-old female who is well known to me for treatmet of neuroischemic wounds to b/l feet. Significant past medical history for PAD, Type 2 diabetes, RA, obstructive sleep apnea, hypertension who presented to [facility] from
[facility] when staff noted she was febrile with altered mental status. She was last seen by me, Tuesday05/04/2024 and wounds were all noted to be smaller and uninfected with no acute ischemia or signs of infection. She was mildly forgetful
(her normal baseline) but AAO x 3 and conversant
Past Medical History
Past Medical History: PAD, Type 2 diabetes, peripheral neuropathy, obstructive sleep apnea, hypertension, Osteomyelitis
Past Surgical History: Right knee replacement, prev debridemet of bone to the right 4th toe, met, left great toe, bunionectomy with retained hardware right foot (?unknown year)
Social History
Tobacco: Non-Smoker
Alcohol: None
Drug: None
Living: [facility] ([facility]), unmarried
Allergies / Home Medications
Allergy/AdvReac Type Severity Reaction Status Date / Time
No Known Allergies Allergy Verified 04/15/24 05:25
�Medication �Instructions �Recorded �Confirmed �Type
duloxetine 60 mg capsule,delayed 60 mg PO DAILY 06/15/17 05/06/24 History
release
insulin aspart U-100 100 unit/mL 36 units SC TID@0830,1230,1630 06/15/17 05/06/24 History
(3 mL) subcutaneous pen (Novolog
FlexPen U-100 Insulin aspart)
cholecalciferol (vitamin D3) 25 25 mcg PO DAILY 03/03/23 05/06/24 History
mcg (1,000 unit) tablet (Vitamin
D3)
latanoprost 0.005 % eye drops 1 drp BOTH EYES HS 03/03/23 05/06/24 History
insulin glargine 100 unit/mL 36 units SC DAILY 03/11/23 05/06/24 History
subcutaneous solution (Lantus
U-100 Insulin)
aspirin 81 mg tablet,delayed 81 mg PO DAILY 03/18/24 05/06/24 History
release
dorzolamide 2 % eye drops 1 drp BOTH EYES BID 03/18/24 05/06/24 History
losartan 50 mg tablet 50 mg PO DAILY 03/18/24 05/06/24 History
pregabalin 150 mg capsule 150 mg PO BID 03/18/24 05/06/24 History
atorvastatin 10 mg tablet 10 mg PO HS 05/06/24 05/06/24 History
eucalyptus-peppermint oil in a 1 drp intranasal BID 05/06/24 05/06/24 History
nasal solution (Ponaris nasal
solution)
Review of Systems
-
Unable to obtain full review of systems at this time due to: Dementia
Physical Exam
Vital Signs
Temp Pulse Resp BP Pulse Ox
100.4 F H 109 25 145/81 96
05/07/24 07:48 05/07/24 13:15 05/07/24 13:15 05/07/24 13:00 05/07/24 13:15
Lab Results:
Reviewed xrays left foot, CT abdomen and head- no acute findings
05/07/24 04:49
05/07/24 04:49
05/06/24 05/06/24 05/06/24
18:37 22:50 22:51
WBC
RBC
Hgb
Hct
MCV
MCH
MCHC
RDW
MPV
PT 15.9 H
VBG pH 7.31 L
VBG pO2 132 H
VBG HCO3 19.1 L
Chloride 108 H
Carbon Dioxide 18 L
BUN 23 H
Glucose 220 H
Hemoglobin A1c
Lactic Acid 4.8 H* 3.9 H
Calcium 8.0 L
AST
ALT
Total Protein
Albumin
POC Glucose
05/06/24 05/07/24 05/07/24
23:15 04:49 08:34
WBC 19.7 H
RBC 3.41 L
Hgb 11.0 L
Hct 34.1 L
MCV 100.0 H
MCH 32.3 H
MCHC 32.3 L
RDW 14.6 H
MPV 11.1 H
PT
VBG pH
VBG pO2
VBG HCO3
Chloride 108 H
Carbon Dioxide 20 L
BUN 24 H
Glucose 223 H
Hemoglobin A1c 7.9 H
Lactic Acid 4.0 H*
Calcium 7.9 L
AST 59 H
ALT 46 H
Total Protein 5.1 L
Albumin 2.9 L
POC Glucose 161 H 152 H
05/07/24 05/07/24 05/07/24
10:36 12:51 15:49
WBC
RBC
Hgb
Hct
MCV
MCH
MCHC
RDW
MPV
PT
VBG pH
VBG pO2
VBG HCO3
Chloride
Carbon Dioxide
BUN
Glucose
Hemoglobin A1c
Lactic Acid 3.2 H 2.7 H
Calcium
AST
ALT
Total Protein
Albumin
POC Glucose 195 H
Physical Exam
General: Confused, incoherent, unable to respond to questions
LE focused: No Edema to LEs, moving legs freely, digital deformities resulting from RA to toes and feet. Right foot 2nd toe wound is pink and granular. Left foot is dusky with NEW ischemic changes to periphery of the wounds to the left dorsal 1st
met, 2nd toe and cyanosis to the medial 5th toe- presently no open wound is noted. DPA pulses palpable B/L, diminished UPHOLSTERER HELPER right and non palpable UPHOLSTERER HELPER left foot. There is no cellulitis or lymphangitis to legs or feet
Assessment / Plan
1-DM2 with PAD -Dr Yan following.
2-DM2 with peripheral neuropathy
3-H/O chronic wounds- with ischemic changes left foot. It appears ischemia is related to possible embolization. Will follow along, may require amputation of the left 5th toe if necrosis progresses
4-Sepsis/Bacteremia - It is possible/likely that the left foot is source, however ? endocarditis/pericarditis as well with possible embolization to toes
-> Medicine and ID following on IV abt/anti virals
5-Encephalopathy- sepsis Vs ?possible leukoencephalopathy related to Actemra. Patient was last tx with Actemra 04/27/2024.
Will follow with you
[2024-05-07 18:29] LABS: Glucose - Point of Care 185 mg/dl (70-99)
--- NOTE | 2024-05-07 20:00 | PTCARENOTE ---
Pt received awake, confused with nonsensical speech. Can occasionally speak a clear word but otherwise speech garbled and /or speech does not make sense to conversation. Monitor reads sinus tach. Assessment as charted.
[2024-05-07 20:55] LABS: Lactic Acid 1.9 mmol/L (0.7-2.0)
[2024-05-07] MEDS: NOVOLOG FLEXPEN-HIGH RESISTANCE 1 UNITS SC (23:05)
[2024-05-07 23:16] LABS: Glucose - Point of Care 136 mg/dl (70-99)
[2024-05-07] MEDS: TYLENOL/FEVERALL 650 MG RECTAL (23:39)
[2024-05-08] VITALS (29 sets, daily range): BP systolic 117–183; BP diastolic 55–141; PULSE 88–129; BMI 28.2
[2024-05-08] MEDS: NSS 1000 IV ×2 (02:31→14:48)
[2024-05-08] MEDS: LOPRESSOR 5 MG IV (03:48)
[2024-05-08 04:49] LABS: Venous Blood Gas B.E. -5.3 mmol/L (-4 to +4); Venous Blood Gas HCO3 21.2 mmol/L (22-27); Venous Blood Gas O2 Sat % 98.6 %; Venous Blood Gas O2 Therapy 3L/min; Venous Blood Gas pCO2 44 mmHg (35-48); Venous Blood Gas pH 7.29 (7.32-7.43); Venous Blood Gas pO2 91 mmHg (30-50)
[2024-05-08 05:13] LABS: Hematocrit 33.4 % (37.0-47.0); Mean Corp Hgb Conc. 32.9 g/dL (33.0-37.0); Mean Corpuscular Hgb 32.6 pg (27.0-31.0); Mean Corpuscular Volume 99.1 fL (81.0-99.0); Mean Platelet Volume 11.6 fL (7.4-10.4); Platelet Count 102 10^3/uL (130-400); Red Blood Cell Count 3.37 10^6/uL (4.20-5.40); Red Cell Dist. Width 14.1 % (11.5-14.5); White Blood Cell Count 14.6 10^3/uL (4.8-10.8)
[2024-05-08 05:21] LABS: ALT (SGPT) 66 U/L (0-35); AST (SGOT) 111 U/L (14-36); Albumin 2.8 g/dl (3.5-5.0); Alkaline Phosphatase 110 U/L (38-126); Blood Urea Nitrogen 19 mg/dl (7-17); Calcium 8.1 mg/dl (8.4-10.2); Carbon Dioxide 21 mmol/L (22-30); Chloride 110 mmol/L (98-107); Estimated Creatinine Clearance 74 ml/min; Glucose 128 mg/dl (70-99); Magnesium 1.6 mg/dl (1.6-2.3); Phosphorus 2.7 mg/dl (2.5-4.5); Potassium 3.6 mmol/L (3.5-5.1); Sodium 142 mmol/L (135-145); Total Bilirubin 0.4 mg/dl (0.2-1.3); eGFR > 60.00
[2024-05-08] MEDS: VANCOCIN 150 IV (05:22)
[2024-05-08] MEDS: NOVOLOG FLEXPEN-HIGH RESISTANCE 1 UNITS SC ×3 (05:26→18:17)
--- NOTE | 2024-05-08 05:42 | PTCARENOTE ---
During night pt slept for several hours but was then restless, throwing legs over bed. Remains confused. Heart rate 120s-130s when agitated. BP very elevated. House GANG LEADER notified and pt given lopressor IV. Heart rate now 90s with BP 117/55. Pt med
with tylenol suppository during night for elevated temp. Pt had CPAP on during night. Pt much more clear this am. Speech clear. Still disoriented to place/time but is able to answer yes/no questions and follow commands. Will continue to monitor.
--- NOTE | 2024-05-08 07:44 | PTCARENOTE ---
On walking rounds pt found laying side ways in bed confused incont stool , on Bipap. Yan in place at this time. NSS 125 hr. Pt for Echo today
[2024-05-08] MEDS: TRUSOPT 2% OPHTHALMIC SOLUTION 1 DROP BOTH EYES ×2 (07:59→20:59)
--- NOTE | 2024-05-08 09:35 | W.PN.ID1 ---
Date of Service
Date of Service: May 08, 2024
Today's Communication
Continue ceftriaxone.
Assessment / Plan
# Group A streptococcus bacteremia
# left foot wounds likely source of bacteremia
# Severe sepsis - fever and leukocytosis trending down
#Severe LLE PAD with ischemic 5th toe - TBI now worse 0.2, compared to 0.73 in November 2023
#TME
-Follow repeat blood cultures pending
- Ceftriaxone 2g IV q24 (d3)
-DC Vancomycin
-Trend fever, wbc
- Podiatry and Vascular following.
# Conditions CERTIFIED PROFESSIONAL CODER
DM
HTN
HLD
RA on Actemra
ALETHEA
Chronic left foot wounds
PAD s/p LLE angioplasty (2022)
R 4th, 5th toes hammertoe repair (2018)
R 4th metatarsal osteo s/p resection (2018)
R TKR
Lumbar surgery
Chief Complaint
-: Clinical Sepsis and Bacteremia
Subjective / Review of Systems
Drowsy
Vital Signs / Physical Exam
Vital Signs
Vital Signs
Temp Pulse Resp BP Pulse Ox
98.7 F 91 26 133/75 97
05/08/24 08:27 05/08/24 08:00 05/08/24 08:00 05/08/24 08:00 05/08/24 08:00
Selected Entries
05/07/24
19:57
Temp 100.6 F H
Physical Exam
Constitutional: Acutely Ill
Eyes: No Conjunctival Hemorrhage and Sclera Anicteric
Cardiovascular: Regular Rate and S1/S2
Pulmonary: Clear
Gastrointestinal: Soft, Non Tender and Non Distended
Wound: Other (Left 5th toe ischemic, left hallux wound with mild necrosis, left 2nd toe wound yellow slough)
Neurological: Other (Drowsy)
Objective Data
Lab Data
Lab Results
05/08/24 04:41
05/08/24 04:41
PT 15.9 Sec (11.4-14.6) H 05/06/24 22:50
INR 1.28 05/06/24 22:50
APTT 32.5 Sec (23.4-35.0) 05/06/24 22:50
Estimated Creat Clear 74 ml/min 05/08/24 04:41
Lactic Acid 1.9 mmol/L (0.7-2.0) 05/07/24 20:35
Total Bilirubin 0.4 mg/dl (0.2-1.3) 05/08/24 04:41
AST 111 U/L (14-36) H 05/08/24 04:41
ALT 66 U/L (0-35) H 05/08/24 04:41
Alkaline Phosphatase 110 U/L (38-126) 05/08/24 04:41
Most recent labs reviewed.
Micro Results:
05/06/24 10:54 Blood Culture - Preliminary
Blood/Venous Streptococcus pyogenes
Gram Stain - Final
05/06/24 10:54 Blood Culture - Preliminary
Blood/Venous Streptococcus pyogenes
Gram Stain - Final
05/06/24 21:36 MRSA Screen - Final
Nose No Methicillin Resistant Staphylococcus aureus isolated.
05/08/24 04:41 Blood Culture - Pending
Blood/Venous
05/07/24 10:36 Blood Culture - Pending
Blood/Venous
05/06/24 10:54 Influenza Types A & B (DUSTIN) - Final
Nasal Swab Negative for Influenza A & B, NAAT
Negative results must be combined with clinical observations
and patient history.
Nucleic Acid Amplification test (NAAT)performed on the
[employer] platform.
05/06/24 CXR: There is mild stable linear interstitial or airspace disease at the left lung base which may be minimal pneumonia or subsegmental atelectasis
There is subsegmental atelectasis at the right lung base
05/06/24 CT C/A/P: No CT evidence to indicate a source of infection.
05/06/24 Left Foot XRAY: There is linear lucency traversing the second middle phalanx, which has developed since prior examination. Associated soft tissue swelling. Possible osteomyelitis, though relatively well-defined linear configuration would be
unusual. This may also be postsurgical in nature proper clinical setting.
[2024-05-08] MEDS: MAGNESIUM SULFATE 100 IV (09:45)
--- NOTE | 2024-05-08 10:50 | PTCARENOTE ---
Pt now off Cpap desat to [address] Sisteer at bedside. States pt is always on her back and very stiff and rigid.
--- NOTE | 2024-05-08 11:04 | W.PN.HOSP.TC ---
Addendum entered and electronically signed by Griselda Bose MD 05/08/24 18:01:
Feet ulcers and heel ulcer-likely vascular in nature
Original Note:
Today's Communication/Plan
-
Decrease IV fluids rate
Restart antihypertensives
Speech to follow
Encourage out of bed
Encourage incentive spirometry
Await vascular plans
Continue antibiotics
Check echo
Assessment / Plan
Assessment / Plan
78-year-old female presented with fever and mental status change
X-ray of the foot-linear translucency of second middle phalanx associated with soft tissue swelling. Possible osteomyelitis
CT scan of the chest abdomen pelvis-IV contrast-mild to moderate fatty liver. No source of infection.
Head CT-stable exam mild chronic ischemic change and mild atrophy
Chest x-ray-mild to moderate opacity of the left lower lobe increased. Left lower lobe pneumonia versus atelectasis versus scarring.
On examination patient is confused, awake not oriented
No neck stiffness
Right wrist mild tenderness with touching the whole hand
Right second toe dorsal ulceration with mild edema left second toe ulcer, left fifth toe
Abdomen soft and nontender
Right wrist tender, over the wrist rash noted
# Streptococcus bacteremia with severe sepsis,
Source unclear
Possible te ulcer.
Repeat blood cultures ordered
LP was unsuccessful in the ER, But looks like toe is the source
Ceftriaxone to be continued
Continue IV fluids
Repeat Blood cultures have been sent
Also has pain on the right wrist. Check x-ray
HUMBERTO worse. Vascular consulted
Podiatry also consulted
May need vascular procedures
ID eval appreciated
# TME due to above patient is n.p.o. now. Speech to reevaluate
# Metabolic acidosis-lactic acidosis-trended down and normal. Decrease IV fluids
# Mild anasarca. Will soon need Lasix
# Peripheral artery disease with left lower extremity angioplasty 2023 with chronic left foot wounds
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
# Diabetes normally uses Lantus 36 units and NovoLog 36 units AC
Lantus 15 units given along with sliding scale coverage now
Hemoglobin A1c pending
# Rheumatoid arthritis on Actemra (Last dose on 04/27/2024.)
# Immunocompromised
# Mild thrombocytopenia- Follow
# Hypertension-restart losartan
# Chronic elevation of the LFTs
# Hyperlipidemia-Hold statin
# Depression anxiety- duloxetine
# History of fibromyalgia-on Lyrica-hold
# Hypoalbuminemia
# Cognitive dysfunction-worse in the past few months per sister
# History of melanoma surgery 2015
# Sleep apnea-noncompliant with CPAP. On CPAP here
# DVT prophylaxis-Lovenox
# DNR
D/W RN at bed side
D/W Sister and updated.
Time spent 52 min
Part of this note was created using voice recognition system. Occasional wrong word or��sound alike� substitutions may have inadvertently occurred due to the inherent limitations of voice recognition software. If noted kindly bring it to my
attention for correction.
Anticipated Discharge: > 48 hours
Subjective/Interval History
-
Date of Service: May 08, 2024
Objective Data
-
Labs:
Laboratory Results
05/08/24
04:41
WBC 14.6 H
Hgb 11.0 L
Hct 33.4 L
Plt Count 102 L D
Sodium 142
Potassium 3.6
Chloride 110 H
Carbon Dioxide 21 L
BUN 19 H
Creatinine 0.7
Glucose 128 H
Calcium 8.1 L
Total Bilirubin 0.4
AST 111 H
ALT 66 H
Alkaline Phosphatase 110
Vital Signs:
Vital Signs
Temp Pulse Resp BP Pulse Ox
98.7 F 96 30 170/100 94
05/08/24 08:27 05/08/24 10:00 05/08/24 10:00 05/08/24 10:00 05/08/24 10:00
I&O
05/07/24 05/08/24 05/09/24
06:59 06:59 06:59
Intake Total 3425 / 3425 100 / 100
Output Total 475 / 475 1350 / 1350 200 / 200
Balance -475 / -475 2075 / 2075 -100 / -100
[2024-05-08 12:01] LABS: Glucose - Point of Care 86 mg/dl (70-99)
--- NOTE | 2024-05-08 12:01 | PN.CDI ---
CDI
- -
CDI:
Physician Documentation Request
Admit Date: 05/06/24 17:09
Dear Doctor Lidya,
05/07 WOCN note states '... R heel unstageable PI, dry flat eschar'
Vascular has been consulted. Patient has Type II DM.
Physician documentation of the type and location of wounds is required for compliant documentation. Based on the above clinical findings and your assessment, please provide the following in your progress note:
1. Location of the ulcer/wound, including laterality.
2. Type (etiology) of ulcer/wound:
- Diabetic ulcer
- Arterial (ischemic) ulcer
- Traumatic wound
- Venous stasis ulcer
- Pressure (decubitus) ulcer
- Other
Use of terms such as suspected, likely, concern for, or probable (associated with a specific diagnosis that is being evaluated, monitored, or treated as if it exists) are acceptable and can be coded in the inpatient setting, when documented at the
time of discharge.
Thank you,
Doreen Cates RN, BSN
CDI Specialist
tiger text
Please use your independent medical judgment in providing your response.
*Source: National Pressure Ulcer Advisory Panel (NPUAP)
--- NOTE | 2024-05-08 12:38 | CM ---
CM following re: discharge planning.
Reviewed pt's chart, met with pt.
PT and OT evaluations noted - SNF level of care recommended. Both pt and her sister are aware, [facility] requested. A referral to [facility] made yesterday, review is pending.
D/C plan: [facility] when pt is medically stable.
CM will follow to assist pt with discharge to [facility].
[2024-05-08] MEDS: COZAAR 50 MG PO (13:53)
[2024-05-08] MEDS: ASPIR LOW (ENTERIC COATED) 81 MG PO (13:53)
[2024-05-08] MEDS: TORADOL 15 MG IV ×2 (14:06→20:58)
[2024-05-08] MEDS: ROCEPHIN 2000 MG IV (15:56)
--- NOTE | 2024-05-08 16:12 | PTOTSP ---
ST Follow-UP
Patient seen at bedside this afternoon for speech therapy. Patient with improved alertness with inconsistent tolerance of PO trials with overt s/s across all liquid trials.
Patient continues to show aspiration risk and not appropriate for PO diet initiation.
Recommend:
1. Continued NPO; consider temporary non-oral means
2. Essential meds crushed in puree as able or via non-oral means
3. Oral care daily
4. Aspiration Risk Hydration Protocol - hold.
5. Dysphagia therapy at the acute care level. ST to f/u reassess appropriateness for diet initiation and need for further objective assessment
[2024-05-08] MEDS: LOVENOX 40 MG SC (17:23)
[2024-05-08] MEDS: STERILE WATER FOR INJECTION IV (17:24)
[2024-05-08 18:06] LABS: Glucose - Point of Care 97 mg/dl (70-99)
[2024-05-08] MEDS: NSS IV (19:00)
--- NOTE | 2024-05-08 19:02 | PTCARENOTE ---
Herminio incont stool . cleaned up report to Shola Flower RN
--- NOTE | 2024-05-08 20:30 | PTCARENOTE ---
Resumed care of pt attempting to get out of bed. Pt unable to reorient to time or place. Pt throwing legs over side rails and sideways in bed. Stool all over bed. Pt pulling at Yan. BP elevated. HR tachycardic. Complete bed bath provided. Pt
continues to be restless and uncooperative with care. ELECTRICAL ASSISTANT notified, order obtained for B/L wrist restraints. PRN Pain medication administered as ordered. Left foot dressing half off, wound care provided. Left forearm int infiltrated and edema now
present. IV discontinued. IVF now infusing via right forearm int. Pt now calm, and resting. Will continue to monitor.
[2024-05-08] MEDS: LYRICA 150 MG PO (20:59)
[2024-05-08] MEDS: XALATAN OPHTHALMIC SOLUTION 1 DROP BOTH EYES (20:59)
[2024-05-08] MEDS: DESENEX/MITRAZOL/ZEASORB 1 APPLIC TOPICAL (23:02)
[2024-05-08] MEDS: DEXTROSE 50% SYRINGE 12.5 GRAMS IV ×2 (23:07→23:26)
[2024-05-08] MEDS: NOVOLOG FLEXPEN-HIGH RESISTANCE SC (23:09)
[2024-05-08 23:16] LABS: Glucose - Point of Care 45 mg/dl (70-99)
[2024-05-08 23:37] LABS: Glucose - Point of Care 59 mg/dl (70-99)
--- NOTE | 2024-05-08 23:49 | PTCARENOTE ---
Pt hypoglycemic, bedside glucose 45. Hypoglycemic protocol initiated. CONTRACT PARALEGAL notified, order obtained to hold HS Lantus. Pt drowsy, arousable to voice, able to say yes no, then falls back to sleep. Pt repositioned. Oral care provided. RT at bedside to
place pt on CPAP. No other changes in assessment noted at this time. Will continue to monitor.
[2024-05-08 23:53] LABS: Glucose - Point of Care 109 mg/dl (70-99)
[2024-05-09] VITALS (21 sets, daily range): BP systolic 126–169; BP diastolic 61–89; PULSE 97–99; O2SAT 95–96; BMI 29.4
[2024-05-09 01:38] LABS: Glucose - Point of Care 91 mg/dl (70-99)
[2024-05-09] MEDS: NSS 1000 IV (03:38)
[2024-05-09 04:55] LABS: Hematocrit 31.6 % (37.0-47.0); Hemoglobin 10.5 g/dL (12.0-16.0); Mean Corp Hgb Conc. 33.2 g/dL (33.0-37.0); Mean Corpuscular Hgb 32.2 pg (27.0-31.0); Mean Corpuscular Volume 96.9 fL (81.0-99.0); Mean Platelet Volume 11.5 fL (7.4-10.4); Platelet Count 92 10^3/uL (130-400); Red Blood Cell Count 3.26 10^6/uL (4.20-5.40); Red Cell Dist. Width 14.3 % (11.5-14.5)
[2024-05-09 05:18] LABS: ALT (SGPT) 74 U/L (0-35); AST (SGOT) 104 U/L (14-36); Albumin 2.7 g/dl (3.5-5.0); Alkaline Phosphatase 118 U/L (38-126); Blood Urea Nitrogen 19 mg/dl (7-17); Calcium 8.1 mg/dl (8.4-10.2); Carbon Dioxide 22 mmol/L (22-30); Chloride 111 mmol/L (98-107); Estimated Creatinine Clearance 86 ml/min; Glucose 109 mg/dl (70-99); Magnesium 1.9 mg/dl (1.6-2.3); Potassium 3.5 mmol/L (3.5-5.1); Sodium 144 mmol/L (135-145); Total Bilirubin 0.5 mg/dl (0.2-1.3); eGFR > 60.00
[2024-05-09 06:14] LABS: Glucose - Point of Care 107 mg/dl (70-99)
[2024-05-09] MEDS: NOVOLOG FLEXPEN-HIGH RESISTANCE SC (06:26)
[2024-05-09] MEDS: COZAAR 50 MG PO (09:06)
[2024-05-09] MEDS: DESENEX/MITRAZOL/ZEASORB 1 APPLIC TOPICAL ×2 (09:06→19:33)
[2024-05-09] MEDS: ASPIR LOW (ENTERIC COATED) 81 MG PO (09:06)
[2024-05-09] MEDS: TRUSOPT 2% OPHTHALMIC SOLUTION 1 DROP BOTH EYES ×2 (09:07→19:36)
[2024-05-09] MEDS: LYRICA 150 MG PO ×2 (09:21→19:33)
--- NOTE | 2024-05-09 09:59 | W.PN.HOSP.TC ---
Today's Communication/Plan
-
IV AB
Transfer to tele
Assessment / Plan
Assessment / Plan
78-year-old female presented with fever and mental status change
X-ray of the foot-linear translucency of second middle phalanx associated with soft tissue swelling. Possible osteomyelitis
CT scan of the chest abdomen pelvis-IV contrast-mild to moderate fatty liver. No source of infection.
Head CT-stable exam mild chronic ischemic change and mild atrophy
Chest x-ray-mild to moderate opacity of the left lower lobe increased. Left lower lobe pneumonia versus atelectasis versus scarring.
Right wrist no acute fracture or malalignment. Small lucent lesions in the lateral aspect of the capitate. Not suspicious for osteomyelitis. Large amount of soft tissue edema
On examination patient is better oriented today.
Right wrist mild tenderness with touching the whole hand
Right second toe dorsal ulceration with mild edema left second toe ulcer, left fifth toe
Abdomen soft and nontender
Chest rales right base
Right wrist tender, over the wrist rash noted
# Streptococcus bacteremia with severe sepsis,
Source unclear
Possible toe ulcers.
Repeat blood cultures ordered
LP was unsuccessful in the ER, But looks like toe is the source
Ceftriaxone to be continued
Stop IV fluids
Repeat Blood cultures have been sent
HUMBERTO worse. Vascular is planning for arteriogram on Tuesday
Podiatry eval appreciated
ID eval appreciated
# TME better. Passed swallow evaluation
# Metabolic acidosis-lactic acidosis-trended down and normal. Decrease IV fluids
# Mild anasarca. Will soon need Lasix
# Peripheral artery disease with left lower extremity angioplasty 2022 with chronic left foot wounds
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
# Diabetes normally uses Lantus 36 units and NovoLog 36 units AC
Lantus 15 units given along with sliding scale coverage now
Hopefully sugars will improve now that she can be on a diet
Hemoglobin A1c pending
# Rheumatoid arthritis on Actemra (Last dose on 04/27/2024.)
# Immunocompromised State
# Mild thrombocytopenia- Follow
# Hypertension- losartan
# Chronic elevation of the LFTs
# Hyperlipidemia-Hold statin
# Depression anxiety- duloxetine
# History of fibromyalgia-on Lyrica-hold
# Hypoalbuminemia
# Cognitive dysfunction-worse in the past few months per sister
# History of melanoma surgery 2015
# Sleep apnea-noncompliant with CPAP. On CPAP here
# DVT prophylaxis-Lovenox
# DNR
D/W RN
D/w Speech at bed side
D/W Sister and updated again
Time spent 51 min
Part of this note was created using voice recognition system. Occasional wrong word or��sound alike� substitutions may have inadvertently occurred due to the inherent limitations of voice recognition software. If noted kindly bring it to my
attention for correction.
Anticipated Discharge: > 48 hours
Subjective/Interval History
-
Date of Service: May 09, 2024
Objective Data
-
Labs:
Laboratory Results
05/09/24
04:41
WBC 11.0 H
Hgb 10.5 L
Hct 31.6 L
Plt Count 92 L
Sodium 144
Potassium 3.5
Chloride 111 H
Carbon Dioxide 22
BUN 19 H
Creatinine 0.5 L
Glucose 109 H
Calcium 8.1 L
Total Bilirubin 0.5
AST 104 H
ALT 74 H
Alkaline Phosphatase 118
Vital Signs:
Vital Signs
Temp Pulse Resp BP Pulse Ox
97.2 F 99 24 169/86 98
05/09/24 07:00 05/09/24 09:06 05/09/24 06:00 05/09/24 09:06 05/09/24 06:00
I&O
05/08/24 05/09/24 05/10/24
06:59 06:59 06:59
Intake Total 3425 / 3425 1750 / 1750
Output Total 1350 / 1350 1100 / 1100
Balance 2074 650 / 650
--- NOTE | 2024-05-09 10:04 | PTOTSP ---
Speech Language Pathology
Pt seen for dysphagia tx. Awake and alert this date, oriented to name, , location, and year. P.O. trials of puree, regular solids, and thin liquids provided. Adequate mastication, bolus formation, and A-P transit noted with no oral residue.
No overt signs of aspiration.
Recommend:
(1) Upgrade to regular solids/thin liquids
(2) General aspiration precautions
(3) Meds as tolerated, can trial whole with liquids
(4) MENTAL HEALTH ASSOCIATE to sign off. Please reconsult as indicated
[2024-05-09 11:23] LABS: Glucose - Point of Care 83 mg/dl (70-99)
--- NOTE | 2024-05-09 12:00 | PTCARENOTE ---
Received pt on CPAP, awake and asking to come off, placed on 2L NC sating 96%. Pt alert to self and hospital but confused on recent events. Very forgetful, agitated at times. Dr Bose at bedside to assess pt. R hand red, swollen and painful. IV
dc'd from that arm, IVFs dc'd. L wrist placed by IV team. Discussed needing Midline. Lasix ordered. Pt incontinent of urine, Purewick placed. Pt passed swallow eval, placed on 1999 ADA diet, tolerated well, able to feed self w/ set up, UE very
swollen and weak. Neuropathy LE. Dressings intact. VSS. NSR on monitor. Full assessment as documented.
--- NOTE | 2024-05-09 12:22 | W.PN.UPDATE ---
Update Note
Progress Note Update
Updated patient at bedside, additionally called and spoke to patient's sister Mary, about plan for left lower extremity arteriogram on Tuesday (05/11/2024) with Dr. Colin Yan. All parties are in agreement we will tentatively schedule at this
time. N.p.o. at midnight.
--- NOTE | 2024-05-09 12:35 | W.PN.ID1 ---
Date of Service
Date of Service: May 09, 2024
Today's Communication
Continue ceftriaxone.
Assessment / Plan
# Group A streptococcus bacteremia
# left foot wounds source of bacteremia
# s/p Severe sepsis. fever resolved. leukocytosis trending down
#Severe LLE PAD with ischemic 5th toe - TBI now worse 0.2, compared to 0.73 in November 2023
#TME - resolving
-repeat blood cultures neg to date
- Continue Ceftriaxone 2g IV q24 (d4)
- Trend wbc
- For arteriogram Tuesday, per Vascular.
# Conditions MANUFACTURER AGENT
DM
HTN
HLD
RA on Actemra
ALETHEA
Chronic left foot wounds
PAD s/p LLE angioplasty (2022)
R 4th, 5th toes hammertoe repair (2018)
R 4th metatarsal osteo s/p resection (2018)
R TKR
Lumbar surgery
Chief Complaint
-: Clinical Sepsis and Bacteremia
Subjective / Review of Systems
Feeling better.
Vital Signs / Physical Exam
Vital Signs
Vital Signs
Temp Pulse Resp BP Pulse Ox
98.2 F 99 24 169/86 96
05/09/24 11:00 05/09/24 09:06 05/09/24 06:00 05/09/24 09:06 05/09/24 10:30
Physical Exam
Constitutional: Comfortable
Eyes: No Conjunctival Hemorrhage and Sclera Anicteric
Cardiovascular: Regular Rate and S1/S2
Pulmonary: Clear
Gastrointestinal: Soft, Non Tender and Non Distended
Wound: Other (Left foot: dressing dry)
Neurological: AO x 3 and Other (Drowsy)
Objective Data
Lab Data
Lab Results
05/09/24 04:41
05/09/24 04:41
PT 15.9 Sec (11.4-14.6) H 05/06/24 22:50
INR 1.28 05/06/24 22:50
APTT 32.5 Sec (23.4-35.0) 05/06/24 22:50
Estimated Creat Clear 86 ml/min 05/09/24 04:41
Lactic Acid 1.9 mmol/L (0.7-2.0) 05/07/24 20:35
Total Bilirubin 0.5 mg/dl (0.2-1.3) 05/09/24 04:41
AST 104 U/L (14-36) H 05/09/24 04:41
ALT 74 U/L (0-35) H 05/09/24 04:41
Alkaline Phosphatase 118 U/L (38-126) 05/09/24 04:41
Most recent labs reviewed.
Micro Results:
05/06/24 10:54 Blood Culture - Final
Blood/Venous Streptococcus pyogenes
Gram Stain - Final
05/06/24 10:54 Blood Culture - Final
Blood/Venous Streptococcus pyogenes
Gram Stain - Final
05/07/24 10:36 Blood Culture - Preliminary
Blood/Venous No Growth in 48 hours- Final report to follow
05/08/24 04:41 Blood Culture - Preliminary
Blood/Venous No Growth in 24 hours- Final report to follow
05/06/24 21:36 MRSA Screen - Final
Nose No Methicillin Resistant Staphylococcus aureus isolated.
05/06/24 10:54 Influenza Types A & B (DUSTIN) - Final
Nasal Swab Negative for Influenza A & B, NAAT
Negative results must be combined with clinical observations
and patient history.
Nucleic Acid Amplification test (NAAT)performed on the
[employer] platform.
05/06/24 CXR: There is mild stable linear interstitial or airspace disease at the left lung base which may be minimal pneumonia or subsegmental atelectasis
There is subsegmental atelectasis at the right lung base
05/06/24 CT C/A/P: No CT evidence to indicate a source of infection.
05/06/24 Left Foot XRAY: There is linear lucency traversing the second middle phalanx, which has developed since prior examination. Associated soft tissue swelling. Possible osteomyelitis, though relatively well-defined linear configuration would be
unusual. This may also be postsurgical in nature proper clinical setting.
[2024-05-09] MEDS: LASIX 20 MG PO (12:59)
[2024-05-09] MEDS: KLOR-CON 20 MEQ PO (12:59)
[2024-05-09] MEDS: NOVOLOG FLEXPEN-HIGH RESISTANCE 1 UNITS SC (13:00)
[2024-05-09] MEDS: TORADOL 15 MG IV (15:30)
[2024-05-09] MEDS: ROCEPHIN 2000 MG IV (15:30)
[2024-05-09] MEDS: STERILE WATER FOR INJECTION 20 ML IV (15:30)
--- NOTE | 2024-05-09 16:13 | W.PN.POD ---
Today's Communication
Today's Communication
All Wounds all reassesd today and redressed. Willl re order wound care
Rec ortho eval right wrist for possible needle aspiration of fluctuant mass if necessary
Agram and poss vascular intervention sched for Friday 05/11 w/Dr Yan. After this I would like to obtain an MRI or CT of the left foot
to eval for osteo and then plan for surgical debridement/ amp of the 2nd and or 5th toes if positive.
will obtain xray right foot as result of pain to her midfoot and ankle right
Will follow
Assessment / Plan
-
DM2 with PAD
DM2 with DPN with LOPS
RA foot deformity-immunosuppressed on Actemra last dose 04/27/24
Multiple wounds as described above- deterioration left 2nd toe wound now to tendon/poss bone
xray left 2nd toe- orig injury 11/08, xr now with progression of fracture to the middle phalynx with poss osteomyelitis, no erosive changes
Pain right foot and leg
Cellulitis right wrist -? abscess
Severe sepsis- IV abt/medicine and ID following closely, improving
Subjective
Chief Complaint
severe sepsis
Subjective
Pt more alert and oriented today- closer to baseline. C/O pain to the right hand/wrist and the right leg/ankle and foot
Objective
Temp Pulse Resp BP Pulse Ox
98.2 F 105 23 132/61 96
05/09/24 11:00 05/09/24 15:28 05/09/24 15:28 05/09/24 15:28 05/09/24 12:03
05/09/24 04:41
05/09/24 04:41
Vital Signs and Lab results were reviewed.
Inspection: Cellulitis (right hand), Inflammation and Ulcer (wounds as described below)
Physical Exam
Physical Exam
General: No Apparent Distress and Appears Chronically Ill
Musculoskeletal: Cyanosis (left 5th toe with deroofed bulla), Edema, Right Lower Extrem, Edema, Left Lower Extrem and Other (pain to light palpation right midfoot and ankle eliciting severe pain response, as well as upon lifting the right leg)
Skin: Warm, Dry, Neurotrophic Ulcer (right 2nd toe- granular and small (<0.5cm2) into sq, right heel is now pink and mainly granular with fibrinous slough <1cm2, no purulence or signs of infection, left 2nd toe deep to tendon chronic edema to toe,
measures <0.5cm2, new abrasion left heel-partial thickness, uninfected) and Other (cyanotic partially deroofed bulla left 5th toe w/o malodor, purulence or exposed tendon or bone. Cellulitis and fluctuant area noted to the medial right wrist)
Neuro: AO x 3 (at baseline) and Protective Sensation Diminished
Vascular: Pedal Hair Absent and Skin Temperature Warm to Warm
Dorsalis Pedis: Intact
Posterior Tibialis: Absent
--- NOTE | 2024-05-09 16:42 | PTCARENOTE ---
Report called to WM Brown. Pt transferred to room 427.
[2024-05-09 16:53] LABS: Glucose - Point of Care 154 mg/dl (70-99)
[2024-05-09] MEDS: NOVOLOG FLEXPEN-HIGH RESISTANCE 2 UNITS SC (17:40)
[2024-05-09] MEDS: LOVENOX 40 MG SC (17:40)
[2024-05-09 21:25] LABS: Glucose - Point of Care 123 mg/dl (70-99)
[2024-05-09] MEDS: LANTUS 0.15 UNITS SC (21:33)
[2024-05-09] MEDS: XALATAN OPHTHALMIC SOLUTION 1 DROP BOTH EYES (21:38)
[2024-05-10 03:00] VITALS: BP 138/90
[2024-05-10 07:50] LABS: Glucose - Point of Care 182 mg/dl (70-99)
[2024-05-10 08:08] VITALS: BP 131/68
[2024-05-10 08:11] LABS: ALT (SGPT) 114 U/L (0-35); AST (SGOT) 152 U/L (14-36); Albumin 2.7 g/dl (3.5-5.0); Alkaline Phosphatase 409 U/L (38-126); Blood Urea Nitrogen 19 mg/dl (7-17); Calcium 8.2 mg/dl (8.4-10.2); Carbon Dioxide 23 mmol/L (22-30); Chloride 106 mmol/L (98-107); Estimated Creatinine Clearance 88 ml/min; Glucose 167 mg/dl (70-99); Potassium 3.2 mmol/L (3.5-5.1); Sodium 141 mmol/L (135-145); Total Bilirubin 0.7 mg/dl (0.2-1.3); Total Protein 4.8 g/dl (6.3-8.2); eGFR > 60.00
[2024-05-10 08:13] LABS: Hematocrit 33.8 % (37.0-47.0); Hemoglobin 11.2 g/dL (12.0-16.0); Mean Corp Hgb Conc. 33.1 g/dL (33.0-37.0); Mean Corpuscular Hgb 32.9 pg (27.0-31.0); Mean Corpuscular Volume 99.4 fL (81.0-99.0); Mean Platelet Volume 12.3 fL (7.4-10.4); Platelet Count 85 10^3/uL (130-400); Red Cell Dist. Width 14.1 % (11.5-14.5); White Blood Cell Count 11.9 10^3/uL (4.8-10.8)
[2024-05-10] MEDS: NOVOLOG FLEXPEN-HIGH RESISTANCE 2 UNITS SC (09:58)
[2024-05-10] MEDS: ASPIR LOW (ENTERIC COATED) 81 MG PO (10:16)
[2024-05-10] MEDS: COZAAR 50 MG PO (10:16)
[2024-05-10] MEDS: KCL 40 MEQ PO (10:16)
[2024-05-10] MEDS: LYRICA 150 MG PO ×2 (10:16→19:34)
[2024-05-10] MEDS: DESENEX/MITRAZOL/ZEASORB 1 APPLIC TOPICAL ×2 (10:17→19:34)
[2024-05-10] MEDS: TRUSOPT 2% OPHTHALMIC SOLUTION 1 DROP BOTH EYES ×2 (10:19→19:35)
[2024-05-10 11:40] LABS: Glucose - Point of Care 134 mg/dl (70-99)
--- NOTE | 2024-05-10 12:27 | W.PN.ID1 ---
Date of Service
Date of Service: May 10, 2024
Today's Communication
Add clinda to ceftriaxone.
Surgical eval of RUE.
Assessment / Plan
# Group A streptococcus bacteremia
# left foot wounds source of bacteremia
# New rapidly extending dark purplish erythema RUE concerning for necrotizing fascitiis
#Severe LLE PAD with ischemic 5th toe - TBI now worse 0.2, compared to 0.73 in November 2023
# s/p Severe sepsis. fever resolved. leukocytosis trending down
- Surgical consult placed by hospitalist regarding RUE
-Add short course clindamycin 900mg IV q6H as toxin inhibitor.
- Continue Ceftriaxone 2g IV q24 (d5)
- Follow clinically
- For arteriogram, per Vascular.
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
DM
HTN
HLD
RA on Actemra, last received 04/27/24
ALETHEA
Chronic left foot wounds
PAD s/p LLE angioplasty (2022)
R 4th, 5th toes hammertoe repair (2018)
R 4th metatarsal osteo s/p resection (2019)
R TKR
Lumbar surgery
Chief Complaint
-: Clinical Sepsis and Bacteremia
Subjective / Review of Systems
Sister is at bedside. Pt c/o worsening right hand pain.
Vital Signs / Physical Exam
Vital Signs
Vital Signs
Temp Pulse Resp BP Pulse Ox
98.5 F 90 16 131/68 97
05/10/24 08:08 05/10/24 08:08 05/10/24 08:08 05/10/24 08:08 05/10/24 08:08
Physical Exam
Constitutional: Acutely Ill
Cardiovascular: Regular Rate and S1/S2
Pulmonary: Clear (anteriorly)
Gastrointestinal: Soft, Non Tender and Non Distended
Extremities: Edema
Musculoskeletal: Other
Skin: Other (RUE: Dark red purplish discoloration encompassing dorsum of hand, around wrist, extending to upper arm, + tenderness with movement, + edema, + warmth, + indurated nodule medial hand, small blisters)
Objective Data
Lab Data
Lab Results
05/10/24 06:41
05/10/24 06:41
PT 15.9 Sec (11.4-14.6) H 05/06/24 22:50
INR 1.28 05/06/24 22:50
APTT 32.5 Sec (23.4-35.0) 05/06/24 22:50
Estimated Creat Clear 88 ml/min 05/10/24 06:41
Lactic Acid 1.9 mmol/L (0.7-2.0) 05/07/24 20:35
Total Bilirubin 0.7 mg/dl (0.2-1.3) 05/10/24 06:41
AST 152 U/L (14-36) H 05/10/24 06:41
ALT 114 U/L (0-35) H 05/10/24 06:41
Alkaline Phosphatase 409 U/L (38-126) H 05/10/24 06:41
Most recent labs reviewed.
Micro Results:
05/07/24 10:36 Blood Culture - Preliminary
Blood/Venous No Growth in 72 hours- Final report to follow
05/08/24 04:41 Blood Culture - Preliminary
Blood/Venous No Growth in 48 hours- Final report to follow
05/06/24 10:54 Blood Culture - Final
Blood/Venous Streptococcus pyogenes
Gram Stain - Final
05/06/24 10:54 Blood Culture - Final
Blood/Venous Streptococcus pyogenes
Gram Stain - Final
05/06/24 21:36 MRSA Screen - Final
Nose No Methicillin Resistant Staphylococcus aureus isolated.
05/06/24 10:54 Influenza Types A & B (DUSTIN) - Final
Nasal Swab Negative for Influenza A & B, NAAT
Negative results must be combined with clinical observations
and patient history.
Nucleic Acid Amplification test (NAAT)performed on the
[employer] platform.
05/06/24 CXR: There is mild stable linear interstitial or airspace disease at the left lung base which may be minimal pneumonia or subsegmental atelectasis
There is subsegmental atelectasis at the right lung base
05/06/24 CT C/A/P: No CT evidence to indicate a source of infection.
05/06/24 Left Foot XRAY: There is linear lucency traversing the second middle phalanx, which has developed since prior examination. Associated soft tissue swelling. Possible osteomyelitis, though relatively well-defined linear configuration would be
unusual. This may also be postsurgical in nature proper clinical setting.
Care Review
Plan reviewed with: Physician (Dr. Bose)
--- NOTE | 2024-05-10 12:37 | CON.ONC ---
Impression
Impression
Atypical bruising/Post inflammation evolving erythema and hemorrhagic change
Mild consumptive thrombocytopenia
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
Platelet dysfunction associated with aspirin
Plan
Plan
Monitor CBC
Monitor PT PTT recovery
Suspect all secondary to septic event r possible cellulitic source
No findings of ecchymosis or atypical bleeding to suggest systemic coagulopathy
Current level of platelet count unlikely to be associated with significant bleeding
Will follow
Patient History
History of Present Illness
78-year-old female with history of hypertension hyperlipidemia as well as type 2 diabetes presented to the emergency department on 05/06 with fever and altered mental status. Patient was triaged and treated for sepsis with ceftriaxone, Zosyn and
vancomycin and acyclovir. We have been asked to evaluate her for atypical bleeding. Patient has enlarging areas of confluent ecchymosis on the upper extremities with Mild thrombocytopenia.Patient was hypoprothrombinemia on presentation. Patient
largely unresponsive, sister present for review.
Past-Medical/Surgical History
Past Medical History
Past Medical History: DM type II, RA, hypertension, hyperlipidemia, history of pulmonary nodules, severe ALETHEA
Past Surgical History:Right TKA (03/2019), L3-4 ILESI, arteriogram
Social History
Tobacco: Non-smoker
Alcohol: None
Drug: None
Employment: Retired
Family History
Family History: Reviewed & Not Pertinent
Patient Medication
�Medication �Instructions �Recorded �Confirmed �Last Taken �Type
duloxetine 60 mg capsule,delayed 60 mg PO DAILY Mental 06/15/17 05/06/24 03/18/24 History
release Health/Anxiety
insulin aspart U-100 100 unit/mL 36 units SC TID@0830,1230,1630 06/15/17 05/06/24 03/18/24 History
(3 mL) subcutaneous pen (Novolog Diabetes
FlexPen U-100 Insulin aspart)
cholecalciferol (vitamin D3) 25 25 mcg PO DAILY Supplement 03/03/23 05/06/24 03/17/24 History
mcg (1,000 unit) tablet (Vitamin
D3)
latanoprost 0.005 % eye drops 1 drp BOTH EYES HS Eye Condition 03/03/23 05/06/24 03/17/24 History
insulin glargine 100 unit/mL 36 units SC DAILY Diabetes 03/11/23 05/06/24 03/17/24 History
subcutaneous solution (Lantus
U-100 Insulin)
aspirin 81 mg tablet,delayed 81 mg PO DAILY Blood Clot 03/18/24 05/06/24 03/17/24 History
release Prevention/Tx
dorzolamide 2 % eye drops 1 drp BOTH EYES BID Eye Condition 03/18/24 05/06/24 03/18/24 History
losartan 50 mg tablet 50 mg PO DAILY Blood Pressure 03/18/24 05/06/24 03/18/24 History
pregabalin 150 mg capsule 150 mg PO BID Pain 03/18/24 05/06/24 03/18/24 History
atorvastatin 10 mg tablet 10 mg PO HS High Cholesterol 05/06/24 05/06/24 Unknown History
eucalyptus-peppermint oil in a 1 drp intranasal BID Supplement 05/06/24 05/06/24 Unknown History
nasal solution (Ponaris nasal
solution)
Active Medications
Generic Name Dose Route Start Last Admin
Trade Name Freq PRN Reason Stop Dose Admin
Acetaminophen 650 mg 05/06/24 18:28 05/07/24 23:39
Acetaminophen 650 Mg Rectal Suppository RECTAL 06/03/24 18:27 650 mg
Q4HPRN PRN Administration
mild pain/ZARAGOZA/temp> 100.4F
Aspirin 81 mg 05/08/24 12:00 05/10/24 10:16
Aspirin 81 Mg (Enteric Coated) Tablet PO 06/05/24 11:59 81 mg
DAILY TAMIKO Administration
Bisacodyl 10 mg 05/06/24 18:28
Bisacodyl 10 Mg Rectal Suppository RECTAL 06/03/24 18:27
[id number] PRN
constipation
Ceftriaxone Sodium 2,000 mg 05/07/24 16:00 05/09/24 15:30
Ceftriaxone 1000 Mg / 10 Ml Vial IV 2,000 mg
Q24H TAMIKO Administration
Dextrose 12.5 grams 05/06/24 18:28 05/08/24 23:26
Dextrose 50% (0.5 Grams/Ml) 50 Ml Syringe IV 06/03/24 18:27 12.5 grams
[id number] PRN Administration
hypoglycemia
Protocol
Dorzolamide HCl 0 drop 05/06/24 20:00 05/10/24 10:19
Dorzolamide 2% (Ophthalmic Solution) 10 Ml Bottle BOTH EYES 06/03/24 19:59 1 drop
BID TAMIKO Administration
Glucagon 1 mg 05/06/24 18:28
Glucagon 1 Mg Vial IM 06/03/24 18:27
PRN PRN
hypoglycemia
Protocol
Insulin Glargine 15 units/ 0.15 mls @ 0 mls/hr 05/06/24 22:00 05/09/24 21:33
Device SC 06/03/24 21:59 0.15 mls
HS TAMIKO Administration
As Directed
Clindamycin HCl/Dextrose 900 mg in 50 mls @ 100 mls/hr 05/10/24 12:00
Cleocin IV 05/13/24 06:29
Q6H TAMIKO
Insulin Aspart 0 units 05/09/24 17:00 05/10/24 09:58
Insulin Aspart High Resistance 300 Units/3 Ml Pen.Injctr SC 06/06/24 16:59 2 units
AC TAMIKO Administration
Protocol
Latanoprost 0 drop 05/06/24 22:00 05/09/24 21:38
Latanoprost 0.005% (Ophthalmic Solution) 2.5 Ml Bottle BOTH EYES 06/03/24 21:59 1 drop
HS TAMIKO Administration
Levalbuterol HCl 1.25 mg 05/07/24 20:42
Levalbuterol 1.25 Mg/3 Ml Ampul INH
R Q6HPRN PRN
SOB,COUGH,WHEEZE
Protocol
Losartan Potassium 50 mg 05/08/24 12:00 05/10/24 10:16
Losartan 50 Mg Tablet PO 06/05/24 11:59 50 mg
DAILY TAMIKO Administration
Metoprolol Tartrate 5 mg 05/08/24 03:39 05/08/24 03:48
Metoprolol 5 Mg/5 Ml Vial IV 06/05/24 03:38 5 mg
Q4HPRN PRN Administration
HR >100
Miconazole Nitrate 0 applic 05/08/24 22:00 05/10/24 10:17
Miconazole Powder Bottle TOPICAL 06/05/24 21:59 1 applic
BID TAMIKO Administration
Mupirocin 0 applic 05/10/24 20:00
Mupirocin 2% (Ointment) 22 Gram Tube TOPICAL
BID TAMIKO
Polyethylene Glycol 17 grams 05/06/24 18:28
Polyethylene Glycol Powder 17 Grams Packet PO 06/03/24 18:27
DAILYPRN PRN
constipation
Pregabalin 150 mg 05/08/24 20:00 05/10/24 10:16
Pregabalin 75 Mg Capsule PO 06/05/24 19:59 150 mg
BID TAMIKO Administration
Senna/Docusate Sodium 1 tablet 05/06/24 18:28
Docusate W/Senna (Radha-Colace) Tablet PO 06/03/24 18:27
BIDPRN PRN
constipation
Sodium Chloride 0 flush 05/09/24 17:00
Sodium Chloride 0.9% (Flush) Syringe IV 06/06/24 16:59
PER PROTOCOL TAMIKO
Sterile Water 20 ml 05/08/24 16:00 05/09/24 15:30
Sterile Water For Injection 20 Ml Vial IV 06/05/24 15:59 20 ml
Q24H TAMIKO Administration
Review of Systems
-
All Other Systems: Reviewed and Negative (Patient unable to provide detailed history of symptomatic complaints)
Physical Exam
-
Physical Exam
Constitutional: Comfortable
Eyes: No Conjunctival Hemorrhage and Sclera Anicteric
Cardiovascular: Regular Rate and S1/S2
Pulmonary: Clear
Gastrointestinal: Soft, Non Tender and Non Distended
Extremities: (Left foot: dressing dry) Right upper extremity slightly edematous with dependent evolving ecchymosis and erythema suggestive of previous infection or trauma
Neurological: AO x 3 and Other (Drowsy)
Labs
Lab Results
WBC 11.9 10^3/uL (4.8-10.8) H 05/10/24 06:41
RBC 3.40 10^6/uL (4.20-5.40) L 05/10/24 06:41
Hgb 11.2 g/dL (12.0-16.0) L 05/10/24 06:41
Hct 33.8 % (37.0-47.0) L 05/10/24 06:41
MCV 99.4 fL (81.0-99.0) H 05/10/24 06:41
MCH 32.9 pg (27.0-31.0) H 05/10/24 06:41
MCHC 33.1 g/dL (33.0-37.0) 05/10/24 06:41
RDW 14.1 % (11.5-14.5) 05/10/24 06:41
Plt Count 85 10^3/uL (130-400) L 05/10/24 06:41
MPV 12.3 fL (7.4-10.4) H 05/10/24 06:41
Abs Immat Gran (auto) Cancelled 05/06/24 10:54
Absolute Neuts (auto) Cancelled 05/06/24 10:54
Absolute Lymphs (auto) Cancelled 05/06/24 10:54
Absolute Monos (auto) Cancelled 05/06/24 10:54
Absolute Eos (auto) Cancelled 05/06/24 10:54
Absolute Basos (auto) Cancelled 05/06/24 10:54
Immature Gran % Cancelled 05/06/24 10:54
Neutrophils % Cancelled 05/06/24 10:54
Lymphocytes % Cancelled 05/06/24 10:54
Monocytes % Cancelled 05/06/24 10:54
Eosinophils % Cancelled 05/06/24 10:54
Basophils % Cancelled 05/06/24 10:54
Creatinine 0.6 mg/dL (0.6-1.0) 05/10/24 06:41
Vital Signs
Vital Signs
Temp Pulse Resp BP Pulse Ox
98.5 F 90 16 131/68 97
05/10/24 08:08 05/10/24 08:08 05/10/24 08:08 05/10/24 08:08 05/10/24 08:08
[2024-05-10] MEDS: NOVOLOG FLEXPEN-HIGH RESISTANCE 1 UNITS SC ×2 (12:40→19:45)
[2024-05-10 13:02] LABS: Absolute Neutrophils -Man Diff 10.4 10^3/uL (1.4-6.5); Atypical Lymphocytes 1 %; Band Neutrophils 18 % (0-3); Eosinophils 1 % (0-6); Lymphocytes 2 % (20-51); Monocytes 8 % (2-9); Segmented Neutrophils 70 % (42-75)
[2024-05-10 13:03] LABS: Normal RBC Morphology Yes; Platelets Checked Yes; Total Cells Counted 100
--- NOTE | 2024-05-10 13:46 | W.PN.HOSP.TC ---
Today's Communication/Plan
-
Ortho eval.
CT R Arm
Assessment / Plan
Assessment / Plan
78-year-old female presented with fever and mental status change
X-ray of the foot-linear translucency of second middle phalanx associated with soft tissue swelling. Possible osteomyelitis
CT scan of the chest abdomen pelvis-IV contrast-mild to moderate fatty liver. No source of infection.
Head CT-stable exam mild chronic ischemic change and mild atrophy
Chest x-ray-mild to moderate opacity of the left lower lobe increased. Left lower lobe pneumonia versus atelectasis versus scarring.
Right wrist no acute fracture or malalignment. Small lucent lesions in the lateral aspect of the capitate. Not suspicious for osteomyelitis. Large amount of soft tissue edema
seen earlier. with ID and sister at bed side
2 visits to the room.
On examination patient drowsy, arousable states the name identifies sister and able to say her name. States that she feels tired.
Right wrist dorsum, dorsal hand with edema, skin hemorrhage noted underneath, and the palm, and also dependent areas. Diffuse edema noted
Right second toe dorsal ulceration with mild edema left second toe ulcer, left fifth toe, left big toe,
Abdomen soft and nontender
Chest rales right base
# Streptococcus bacteremia with severe sepsis,
Source unclear
Possible toe ulcers.
Repeat blood cultures ordered
LP was unsuccessful in the ER, But looks like toe is the source
Ceftriaxone to be continued, clindamycin added today
Repeat blood cultures negative
HUMBERTO worse. Vascular is planning for arteriogram on Tuesday initially but on hold secondary to the low platelets
Podiatry eval appreciated
ID eval appreciated
# Edema, redness and pain on the right arm- wrist/Arm looks much worse since yesterday
check CT with contrast. Orthopedic evaluation requested
# Thrombocytopenia with skin hemorrhage. Repeat INR pending. Hematology evaluation appreciated.. Hold Lovenox. HIT panel sent even though suspicion is not that high
# Hypokalemia-replace
# TME better. Passed swallow evaluation. Drowsy today but arousable. Nonfocal exam
# Metabolic acidosis-lactic acidosis-trended down and normal.
# Mild anasarca. Patient was given Lasix yesterday
# Peripheral artery disease with left lower extremity angioplasty 2022 with chronic left foot wounds
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
Lantus 15 units given along with sliding scale coverage now
Hemoglobin A1c 7.9
# Rheumatoid arthritis on Actemra (Last dose on 04/27/2024.)
# Immunocompromised State
# Hypertension- losartan
# Chronic elevation of the LFTs, acute elevation noted. CT with normal liver and gallbladder.
# Hyperlipidemia-Hold statin
# Depression anxiety- duloxetine
# History of fibromyalgia-on Lyrica-hold
# Hypoalbuminemia
# Cognitive dysfunction-worse in the past few months per sister
# History of melanoma surgery 2015
# Sleep apnea-noncompliant with CPAP. On CPAP here
# DVT prophylaxis-discontinued Lovenox. Added SCDs
# DNR
D/W RN
D/w sister at bed side
D/W infectious disease
Discussed with orthopedics and hematology
Time spent 55 min
Part of this note was created using voice recognition system. Occasional wrong word or��sound alike� substitutions may have inadvertently occurred due to the inherent limitations of voice recognition software. If noted kindly bring it to my
attention for correction.
Anticipated Discharge: > 48 hours
Subjective/Interval History
-
Date of Service: May 10, 2024
Objective Data
-
Labs:
Laboratory Results
05/10/24 05/10/24
06:41 12:27
WBC 11.9 H
Hgb 11.2 L
Hct 33.8 L
Plt Count 85 L
PT Pending
INR Pending
Sodium 141
Potassium 3.2 L
Chloride 106
Carbon Dioxide 23
BUN 19 H
Creatinine 0.6
Glucose 167 H
Calcium 8.2 L
Total Bilirubin 0.7
AST 152 H
ALT 114 H
Alkaline Phosphatase 409 H
Vital Signs:
Vital Signs
Temp Pulse Resp BP Pulse Ox
98.5 F 90 16 131/68 97
05/10/24 08:08 05/10/24 08:08 05/10/24 08:08 05/10/24 08:08 05/10/24 08:08
I&O
05/09/24 05/10/24 05/11/24
06:59 06:59 06:59
Intake Total 1750 / 1750 1020 / 1020
Output Total 1100 / 1100 550 / 550
Balance 650 / 650 470 / 470
[2024-05-10] MEDS: CLEOCIN 50 IV ×3 (13:50→23:33)
[2024-05-10] MEDS: FLUSH (NSS) 1 FLUSH IV (13:51)
[2024-05-10 14:10] LABS: INR 1.06; PT 13.8 Sec (11.4-14.6)
--- NOTE | 2024-05-10 14:28 | W.PN.UPDATE ---
Update Note
Progress Note Update
Patient seen and examined at the request of the hospitalist.Patient was lethargic. Patient has bacteremia and has been on antibiotics as per infectious disease for necrotic toe issue treated by Dr. Adrian. Over the past 1 to 2 days she had
swelling about her wrist and forearm region and bruising. She had seen Dr. Quinones 6 weeks ago for injuries that she had sustained to bilateral elbows. She is currently on Lovenox for prophylaxis and a baby aspirin. I reached Out to patient's sister
to gain more information about her condition and left a message on voicemail. She is a walker ambulator. She has been afebrile for 3 days. Hospitalist said her wrist and forearm swelling and erythema started 1 to 2 days ago.
Right upper extremity: Tenderness to palpation about the proximal humerus, elbow, and wrist. Erythema and ecchymosis about the distal third forearm and wrist region. Compartments are supple. Discomfort with range of motion of the fingers. Patient
is lethargic
Impression: Right upper extremity pain, erythema and edema about distal third forearm and wrist, history of bacteremia
Plan: I spoke with Dr. Quinones and shared pictures of patient's arm. I ordered x-rays of the humerus and forearm that he had recommended. At this time he would like to hold off on MRI. This may be a result of her anticoagulation therapy and
therefore instructed to discontinue use of the Lovenox and continue with the [address] Quinones will assess tomorrow.
--- NOTE | 2024-05-10 15:13 | CM ---
CM reviewed chart, spoke with Keri ([phone]) from [facility], can accept patient based on bed availability/day of discharge. Updated clinicals sent in [facility]. Per Keri, [facility] will be covering the weekend ([phone]) for
admissions if needed. CM will continue to follow for all discharge planning needs.
Plan; SNF when medically stable, [facility] can accept pending bed availability
--- NOTE | 2024-05-10 15:15 | W.PN.UPDATE ---
Update Note
Progress Note Update
Informed vascular attending Dr. Colin Yan III of decreased platelet count and pending HIT work up, attending agrees with delaying arteriogram until work up is complete and HIT can be ruled out, plan relayed to hospitalist via TT.
[2024-05-10 16:09] VITALS: BP 111/58
--- NOTE | 2024-05-10 16:23 | W.PN.UPDATE ---
Update Note
Progress Note Update
Imaging pending
Consults appreciated
INR normal.
[2024-05-10] MEDS: STERILE WATER FOR INJECTION 20 ML IV (17:15)
[2024-05-10] MEDS: ROCEPHIN 2000 MG IV (17:17)
[2024-05-10] MEDS: BACTROBAN 2% OINTMENT 1 APPLIC TOPICAL (19:33)
[2024-05-10 19:39] LABS: Glucose - Point of Care 105 mg/dl (70-99)
[2024-05-10 19:40] VITALS: BP 151/79
[2024-05-10] MEDS: TYLENOL 650 MG PO (20:45)
[2024-05-10 21:39] LABS: Glucose - Point of Care 191 mg/dl (70-99)
[2024-05-10] MEDS: LANTUS 0.15 UNITS SC (21:47)
[2024-05-10] MEDS: XALATAN OPHTHALMIC SOLUTION 1 DROP BOTH EYES (21:49)
[2024-05-10 22:14] VITALS: PULSE 81
[2024-05-10] MEDS: OCEAN, SALINE MIST 1 SPRAYS NASAL (23:33)
[2024-05-10 23:46] VITALS: BP 130/56
[2024-05-11 03:15] VITALS: BP 143/67
[2024-05-11] MEDS: CLEOCIN 50 IV ×3 (05:30→23:43)
[2024-05-11 07:00] VITALS: BP 143/71
[2024-05-11 07:19] LABS: Glucose - Point of Care 121 mg/dl (70-99)
[2024-05-11 07:43] LABS: INR 1.07; PT 13.7 Sec (11.4-14.6)
[2024-05-11 07:44] LABS: Hematocrit 32.1 % (37.0-47.0); Hemoglobin 10.7 g/dL (12.0-16.0); Mean Corp Hgb Conc. 33.3 g/dL (33.0-37.0); Mean Corpuscular Hgb 33.1 pg (27.0-31.0); Mean Corpuscular Volume 99.4 fL (81.0-99.0); Mean Platelet Volume 12.1 fL (7.4-10.4); Platelet Count 107 10^3/uL (130-400); Red Blood Cell Count 3.23 10^6/uL (4.20-5.40); Red Cell Dist. Width 14.2 % (11.5-14.5); White Blood Cell Count 18.8 10^3/uL (4.8-10.8)
[2024-05-11] MEDS: NOVOLOG FLEXPEN-HIGH RESISTANCE SC ×2 (07:46→18:04)
[2024-05-11] MEDS: ASPIR LOW (ENTERIC COATED) 81 MG PO (07:48)
[2024-05-11] MEDS: LYRICA 150 MG PO ×2 (07:48→21:15)
[2024-05-11] MEDS: TRUSOPT 2% OPHTHALMIC SOLUTION 1 DROP BOTH EYES ×2 (07:49→21:17)
[2024-05-11] MEDS: BACTROBAN 2% OINTMENT 1 APPLIC TOPICAL ×2 (07:50→21:37)
[2024-05-11] MEDS: DESENEX/MITRAZOL/ZEASORB 1 APPLIC TOPICAL ×2 (07:50→21:17)
[2024-05-11] MEDS: COZAAR 50 MG PO (07:51)
[2024-05-11 08:03] LABS: APTT 22.4 Sec (23.4-35.0)
[2024-05-11 08:17] LABS: ALT (SGPT) 154 U/L (0-35); AST (SGOT) 191 U/L (14-36); Albumin 2.8 g/dl (3.5-5.0); Alkaline Phosphatase 409 U/L (38-126); Blood Urea Nitrogen 15 mg/dl (7-17); Calcium 8.6 mg/dl (8.4-10.2); Carbon Dioxide 30 mmol/L (22-30); Chloride 106 mmol/L (98-107); Estimated Creatinine Clearance 88 ml/min; Glucose 138 mg/dl (70-99); Potassium 3.1 mmol/L (3.5-5.1); Sodium 143 mmol/L (135-145); Total Bilirubin 0.6 mg/dl (0.2-1.3); Total Protein 4.9 g/dl (6.3-8.2); eGFR > 60.00
--- NOTE | 2024-05-11 09:15 | W.PN.ID1 ---
Date of Service
Date of Service: May 11, 2024
Today's Communication
Continue ceftriaxone/clinda.
Hand ortho eval.
Assessment / Plan
# Group A streptococcus bacteremia
# left foot wounds likely source of bacteremia
# New rapidly extending dark purplish erythema RUE concerning for necrotizing fasciitis
# Leukocytosis trending up, + bandemia
#Severe LLE PAD with ischemic 5th toe - TBI now worse 0.2, compared to 0.73 in November 2023
# Thrombocytopenia improving
# s/p septic shock
- Hand ortho evaluation today
- Continue short course (3 days) clindamycin 900mg IV q6H as toxin inhibitor.
- Continue Ceftriaxone 2g IV q24 (d6)
- Today's arteriogram cancelled due to thrombocytopenia, per Vascular.
- Follow clinically
- Trend WBC
# Conditions STUDIO COORDINATOR
DM
HTN
HLD
RA on Actemra, last received 04/27/24
ALETHEA
Chronic left foot wounds
PAD s/p LLE angioplasty (2022)
R 4th, 5th toes hammertoe repair (2018)
R 4th metatarsal osteo s/p resection (2018)
R TKR
Lumbar surgery
Chief Complaint
-: Clinical Sepsis and Bacteremia
Subjective / Review of Systems
More alert today.
R hand painful with movement.
Vital Signs / Physical Exam
Vital Signs
Vital Signs
Temp Pulse Resp BP Pulse Ox
97.6 F 92 18 143/71 94
05/11/24 03:15 05/11/24 03:15 05/11/24 03:15 05/11/24 07:51 05/11/24 03:15
Physical Exam
Constitutional: No Acute Distress
Eyes: Sclera Anicteric
Cardiovascular: Regular Rate and S1/S2
Pulmonary: Other (Decreased BS bases)
Gastrointestinal: Soft, Non Tender and Non Distended
Extremities: Edema (RUe) and Other (RUE: entire dorsum hand up the wrist circumferential dark purple with vasculitic petechia up forearm to axilla)
Wound: Other (left first and second toe small wounds dry/scabbing; left 5th toe black/ischemic)
Objective Data
Lab Data
Lab Results
05/11/24 07:08
05/11/24 07:08
PT 13.7 Sec (11.4-14.6) 05/11/24 07:08
INR 1.07 05/11/24 07:08
APTT 22.4 Sec (23.4-35.0) L 05/11/24 07:08
Estimated Creat Clear 88 ml/min 05/11/24 07:08
Lactic Acid 1.9 mmol/L (0.7-2.0) 05/07/24 20:35
Total Bilirubin 0.6 mg/dl (0.2-1.3) 05/11/24 07:08
AST 191 U/L (14-36) H 05/11/24 07:08
ALT 154 U/L (0-35) H 05/11/24 07:08
Alkaline Phosphatase 409 U/L (38-126) H 05/11/24 07:08
Most recent labs reviewed.
Micro Results:
05/08/24 04:41 Blood Culture - Preliminary
Blood/Venous No Growth in 72 hours- Final report to follow
05/07/24 10:36 Blood Culture - Preliminary
Blood/Venous No Growth in 72 hours- Final report to follow
05/06/24 10:54 Blood Culture - Final
Blood/Venous Streptococcus pyogenes
Gram Stain - Final
05/06/24 10:54 Blood Culture - Final
Blood/Venous Streptococcus pyogenes
Gram Stain - Final
05/06/24 21:36 MRSA Screen - Final
Nose No Methicillin Resistant Staphylococcus aureus isolated.
05/06/24 10:54 Influenza Types A & B (DUSTIN) - Final
Nasal Swab Negative for Influenza A & B, NAAT
Negative results must be combined with clinical observations
and patient history.
Nucleic Acid Amplification test (NAAT)performed on the
[facility] platform.
05/06/24 CXR: There is mild stable linear interstitial or airspace disease at the left lung base which may be minimal pneumonia or subsegmental atelectasis
There is subsegmental atelectasis at the right lung base
05/06/24 CT C/A/P: No CT evidence to indicate a source of infection.
05/06/24 Left Foot XRAY: There is linear lucency traversing the second middle phalanx, which has developed since prior examination. Associated soft tissue swelling. Possible osteomyelitis, though relatively well-defined linear configuration would be
unusual. This may also be postsurgical in nature proper clinical setting.
05/10/24 CT RUE: There is diffuse subcutaneous edema throughout the right upper extremity extending from the shoulder through the hand. There is no discrete fluid collection. There is no subcutaneous gas. Findings may represent edema although
superficial infectious process could appear similar. Mildly prominent right axillary lymph nodes, possibly reactive.
[2024-05-11] MEDS: KCL 270 MEQ IV (10:28)
[2024-05-11] MEDS: TYLENOL PO (10:29)
--- NOTE | 2024-05-11 10:43 | W.PN.ONC2 ---
Today's Communication / Plan
-
follow CBC
RUE/bacteremia/foot ulcerations per ortho, podiatry, ID, vascular
Impression
Impression
strep bacteremia/sepsis
Right upper extremity Atypical bruising/Post inflammation evolving erythema and hemorrhagic change - hand surgery, ID
Mild consumptive thrombocytopenia, >100,000
PTT/PT/INR without elevation
Platelet dysfunction associated with aspirin.
Leukocytosis improved from admission 23.7->11 and has now trended up again to 18.8
transaminitis
Plan
Plan
Monitor CBC
Suspect leukocytosis, anemia, and thrombocytopenia secondary to septic event r possible cellulitic source
No findings of ecchymosis or atypical bleeding to suggest systemic coagulopathy
Current level of platelet count unlikely to be associated with significant bleeding
HIT panel pending
vascular to consider angiogram
Will follow
Subjective/Objective
Subjective
afebrile, no hypoxia or hypotension
c/o nasal congestion
right hand pain unchanged - encouraged to use pain medication
denies overt bleeding
Sister at bedside provided updates during visit
Vital Signs:
Vital Signs
Temp Pulse Resp BP Pulse Ox
98.6 F 84 20 143/71 93
05/11/24 07:00 05/11/24 07:00 05/11/24 07:00 05/11/24 07:51 05/11/24 07:00
Lab Results:
Laboratory Data
WBC 18.8 10^3/uL (4.8-10.8) H 05/11/24 07:08
Hgb 10.7 g/dL (12.0-16.0) L 05/11/24 07:08
Plt Count 107 10^3/uL (130-400) L D 05/11/24 07:08
PT 13.7 Sec (11.4-14.6) 10/25/24 07:08
INR 1.07 05/11/24 07:08
APTT 22.4 Sec (23.4-35.0) L 05/11/24 07:08
eGFR > 60.00 05/11/24 07:08
Physical Exam
Constitutional: lying in bed, no acute distress
Eyes: Sclera Anicteric
Cardiovascular: Regular Rate and S1/S2
Pulmonary: Clear
Gastrointestinal: Soft, Non Tender and Non Distended
Extremities: Left foot: dressing dry. Right upper extremity edematous with ecchymosis and erythema suggestive of previous infection or trauma
Neurological: AO x 3
[2024-05-11 11:00] VITALS: BP 130/77
--- NOTE | 2024-05-11 11:23 | CM ---
Chart reviewed and physical therapy are recommending skilled placement, referral sent to [facility], will need to follow up with admissions at the [facility] when stable.
Plan; Skilled placement at [facility].
--- NOTE | 2024-05-11 12:29 | W.PN.HOSP.TC ---
Today's Communication/Plan
-
Continue antibiotics
Dr. Quinones to evaluate right arm
Assessment / Plan
Assessment / Plan
78-year-old female presented with fever and mental status change
X-ray of the foot-linear translucency of second middle phalanx associated with soft tissue swelling. Possible osteomyelitis
CT scan of the chest abdomen pelvis-IV contrast-mild to moderate fatty liver. No source of infection.
Head CT-stable exam mild chronic ischemic change and mild atrophy
Chest x-ray-mild to moderate opacity of the left lower lobe increased. Left lower lobe pneumonia versus atelectasis versus scarring.
Right wrist no acute fracture or malalignment. Small lucent lesions in the lateral aspect of the capitate. Not suspicious for osteomyelitis. Large amount of soft tissue edema
CT- There is diffuse subcutaneous edema throughout the right upper extremity extending from the shoulder through the hand. There is no discrete fluid collection. There is no subcutaneous gas. Findings may represent edema although superficial
infectious process could appear similar.Mildly prominent right axillary lymph nodes, possibly reactive.Partially visualized small right pleural effusion with adjacent atelectasis.
On examination patient AAO3 . communicating.
Right wrist dorsum, dorsal hand with edema, skin hemorrhage noted underneath, and the palm, and also dependent areas. Diffuse edema noted, not worse than yesterday
Right second toe dorsal ulceration with mild edema left second toe ulcer, left fifth toe, left big toe,
Abdomen soft and nontender
Chest rales right base
# Streptococcus bacteremia with severe sepsis.
Source unclear. Toe ulcers are felt to be the source. It is quite possible that her right arm is also the source of infection.
Repeat blood cultures ordered.
LP was unsuccessful in the ER, But looks like toe is the source.
Ceftriaxone to be continued, clindamycin added today
Repeat blood cultures negative
HUMBERTO worse. Vascular was planning for arteriogram on Tuesday initially but on hold secondary to the low platelets.
ID and Podiatry eval appreciated.
# Edema, redness and pain on the right arm- wrist/Arm looks same since yesterday
CT with contrast no abscess. Orthopedic eval noted and appreciated.
to evaluate
# Thrombocytopenia with skin hemorrhage. Repeat INR normal. Hematology evaluation appreciated.. Hold Lovenox. HIT panel sent even though suspicion is not that high.
# Hypokalemia-replace. Unclear where she is loosing. no diarrhea
# TME better. Passed swallow evaluation.
# Metabolic acidosis-lactic acidosis-trended down and normal.
# Mild anasarca. Patient was given Lasix yesterday
# Peripheral artery disease with left lower extremity angioplasty 2022 with chronic left foot wounds
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
# Diabetes normally uses Lantus 36 units and NovoLog 36 units AC [employer]
Lantus 20 units along with sliding scale coverage now
Hemoglobin A1c 7.9
# Rheumatoid arthritis on Actemra (Last dose on 04/27/2024.)
# Immunocompromised State
# Hypertension- losartan
# Chronic elevation of the LFTs, acute elevation noted. CT with normal liver and gallbladder.Unclear cause for LFT elevation. No RUQ tenderness.
# Hyperlipidemia-Hold statin
# Depression anxiety- duloxetine
# History of fibromyalgia- Lyrica
# Hypoalbuminemia
# Cognitive dysfunction-worse in the past few months per sister
# History of melanoma surgery 2014
# Sleep apnea-noncompliant with CPAP. On CPAP here
# DVT prophylaxis-discontinued Lovenox. Added SCDs
# DNR
D/W RN
D/w sister on the phone and updated.
Part of this note was created using voice recognition system. Occasional wrong word or��sound alike� substitutions may have inadvertently occurred due to the inherent limitations of voice recognition software. If noted kindly bring it to my
attention for correction.
Anticipated Discharge: > 48 hours
Subjective/Interval History
-
Date of Service: May 11, 2024
Objective Data
-
Labs:
Laboratory Results
05/11/24
07:08
WBC 18.8 H
Hgb 10.7 L
Hct 32.1 L
Plt Count 107 L D
PT 13.7
INR 1.07
APTT 22.4 L
Sodium 143
Potassium 3.1 L
Chloride 106
Carbon Dioxide 30
BUN 15
Creatinine 0.6
Glucose 138 H
Calcium 8.6
Total Bilirubin 0.6
AST 191 H
ALT 154 H
Alkaline Phosphatase 409 H
Vital Signs:
Vital Signs
Temp Pulse Resp BP Pulse Ox
97.4 F 91 22 130/77 93
05/11/24 11:00 05/11/24 11:00 05/11/24 11:00 05/11/24 11:00 05/11/24 11:00
I&O
05/10/24 05/11/24 05/12/24
06:59 06:59 06:59
Intake Total 1020 / 1020 1090 / 1090
Output Total 550 / 550
Balance 470 / 470 1090 / 1090
[2024-05-11 12:38] LABS: Glucose - Point of Care 201 mg/dl (70-99)
[2024-05-11] MEDS: OCEAN, SALINE MIST 1 SPRAYS NASAL (13:07)
[2024-05-11] MEDS: NOVOLOG FLEXPEN-HIGH RESISTANCE 4 UNITS SC (13:36)
[2024-05-11] MEDS: OCEAN, SALINE MIST 2 SPRAYS NASAL ×2 (13:37→23:42)
[2024-05-11 14:06] LABS: Creatine Phosphokinase 131 U/L (30-135)
[2024-05-11 15:00] VITALS: BP 156/79
[2024-05-11] MEDS: STERILE WATER FOR INJECTION 20 ML IV (15:21)
[2024-05-11] MEDS: CYMBALTA DELAYED RELEASE 60 MG PO (15:21)
[2024-05-11] MEDS: NOVOLOG FLEXPEN 3 UNITS SC (15:22)
[2024-05-11] MEDS: ROCEPHIN 2000 MG IV (15:22)
[2024-05-11 16:19] LABS: Glucose - Point of Care 186 mg/dl (70-99)
--- NOTE | 2024-05-11 16:51 | W.PN.ORTHO ---
Today's Communication / Plan
-
78F with edema and pain about her right upper extremity with color changes of suspected cellulitis or reactive dermatitis with underyling ecchmyosis.
Imaging is grossly unremarkable for any osseous pathology
No indication/presentation of acute compartment syndrome
LIRNEC score is <1 however CRP not available for complete calculation; would expect more rapid progression and subcutaneous gas on CT; low suspicion for necoritizing fasciitis
No clear indication for acute orthopaedic intervention at this timeframe but unclear presentation.
Orthopaedic Surgery will follow peripherally- if an orthopaedic surgical issue is considered within the differential again please reengage.
Assessment
.
Dressing:
Clean, dry and intact.
Assessment:
Images of the humerus and forearm show no acute or significant chronic osseous abnormalities.
CT of the RUE grossly unremarkable other than soft tissue edema/swelling. No subcutaneous gas
Plan
.
Activity:
Out of bed.
PT/OT
Subjective
.
.:
Patient resting comfortably.
She reports grossly unchanged symptoms about her right upper extremity
Vital Signs and Labs
.
Vital Signs and Labs:
Lab Results
05/11/24 07:08
05/11/24 07:08
Temp Pulse Resp BP Pulse Ox
97.9 F 93 20 156/79 91
05/11/24 15:00 05/11/24 15:00 05/11/24 15:00 05/11/24 15:00 05/11/24 15:00
PT 13.7 Sec (11.4-14.6) 05/11/24 07:08
INR 1.07 05/11/24 07:08
Physical Exam
-
Examination of the right upper extremity shows edema and soft tissue swelling beginning about the mid-brachium and distally. She is nontender about the shoulder with painless ROM. Elbow ROM 10-90 with minimal pain. Wrist ROM of about 20 degrees
passive tolerated. Demonstrates intact AIN/PIN/U n function. Compartments soft and compressible. There is ecchymotic skin through the posterior brachium and antebrachium into the left wrist and hand. There are areas of superficial blisters with mild
erythema.
[2024-05-11] MEDS: CLEOCIN IV (18:04)
[2024-05-11] MEDS: OCEAN, SALINE MIST NASAL (18:06)
[2024-05-11 19:00] VITALS: BP 168/86
[2024-05-11 22:06] LABS: Glucose - Point of Care 232 mg/dl (70-99)
[2024-05-11 23:00] VITALS: BP 181/94
[2024-05-11] MEDS: XALATAN OPHTHALMIC SOLUTION 1 DROP BOTH EYES (23:11)
[2024-05-11] MEDS: LANTUS 0.2 UNITS SC (23:11)
[2024-05-11] MEDS: LOPRESSOR 5 MG IV (23:57)
[2024-05-12 03:15] VITALS: BP 155/89
[2024-05-12] MEDS: CLEOCIN 50 IV ×3 (06:21→20:42)
--- NOTE | 2024-05-12 06:25 | W.PN.HOSP.TC ---
Today's Communication/Plan
-
cont abx as per ID
monitor CBC
glycemic control
amlodipine added w/ holding parameters
cont blood pressure control
Assessment / Plan
Assessment / Plan
General: No acute distress
HEENT: normocephalic atraumatic
Pulm: clear to auscultation b/l
Cardio: S1 S2 regular rate rhythm
Derm: Right wrist dorsum, dorsal hand with edema, skin hemorrhage noted underneath, and the palm, and also dependent areas. Diffuse edema noted
Right second toe dorsal ulceration with mild edema left second toe ulcer, left fifth toe, left big toe,
Neuro: Lethargic but arousable conversant coherent
78-year-old female presented with fever and mental status change
X-ray of the foot-linear translucency of second middle phalanx associated with soft tissue swelling. Possible osteomyelitis
CT scan of the chest abdomen pelvis-IV contrast-mild to moderate fatty liver. No source of infection.
Head CT-stable exam mild chronic ischemic change and mild atrophy
Chest x-ray-mild to moderate opacity of the left lower lobe increased. Left lower lobe pneumonia versus atelectasis versus scarring.
Right wrist no acute fracture or malalignment. Small lucent lesions in the lateral aspect of the capitate. Not suspicious for osteomyelitis. Large amount of soft tissue edema
CT- There is diffuse subcutaneous edema throughout the right upper extremity extending from the shoulder through the hand. There is no discrete fluid collection. There is no subcutaneous gas. Findings may represent edema although superficial
infectious process could appear similar.Mildly prominent right axillary lymph nodes, possibly reactive.Partially visualized small right pleural effusion with adjacent atelectasis.
# Streptococcus bacteremia with severe sepsis.
Suspected source Toe ulcers/wounds. right arm source of infection less likely.
Blood cultures NGTD
LP was unsuccessful in the ER, source more likely pedal wounds as above
continued ceftriaxone Clinda as per ID
HUMBERTO worse. Vascular plans for arteriogram on on hold secondary to the low platelets (since improved).
ID and Podiatry eval appreciated.
# Edema, redness and pain on the right arm
CT with contrast no abscess, subcutaneous gas,
Orthopedic eval appreciated
# Thrombocytopenia with skin hemorrhage. Repeat INR normal. Hematology evaluation appreciated.. Hold Lovenox. HIT panel pending
# Hypokalemia-replace. Unclear where she is loosing. no diarrhea
# TME better. Passed swallow evaluation.
# Metabolic acidosis-lactic acidosis-trended down and normal.
# Mild anasarca. Patient was given Lasix yesterday
# Peripheral artery disease with left lower extremity angioplasty 2022 with chronic left foot wounds
Status post right fourth metatarsal osteomyelitis status post resection in 2018 and fourth and fifth toe hammertoe repair in 2018.
# Diabetes normally uses Lantus 36 units and NovoLog 36 units AC [employer]
Lantus 20 units along with sliding scale coverage now
Hemoglobin A1c 7.9
# Rheumatoid arthritis on Actemra (Last dose on 04/27/2024.)
# Immunocompromised State
# Hypertension- losartan added low dose amlodipine with holding parameters
# Chronic elevation of the LFTs, acute elevation noted. CT with normal liver and gallbladder.Unclear cause for LFT elevation. No RUQ tenderness.
# Hyperlipidemia-Hold statin
# Depression anxiety- duloxetine
# History of fibromyalgia- Lyrica
# Hypoalbuminemia
# Cognitive dysfunction-worse in the past few months per sister
# History of melanoma surgery 2014
# Sleep apnea-noncompliant with CPAP. On CPAP here
# DVT prophylaxis-discontinued Lovenox. Added SCDs
# DNR
discussed with patient and patient's sister Mary
I spent a total of 50 minutes with the patient or on the floor. More than 50% of this time involved counseling and coordination of care.
Anticipated Discharge: > 48 hours
Subjective/Interval History
-
Date of Service: May 12, 2024
Blood pressure noted elevated. Patient lethargic but arousable. Sister Mary present during evaluation.
Objective Data
-
Vital Signs:
Vital Signs
Temp Pulse Resp BP Pulse Ox
100.2 F 98 20 155/89 92
05/12/24 03:15 05/12/24 03:15 05/12/24 03:15 05/12/24 03:15 05/12/24 03:15
I&O
05/10/24 05/11/24 05/12/24
06:59 06:59 06:59
Intake Total 1020 / 1020 1090 / 1090
Output Total 550 / 550
Balance 470 / 470 1090 / 1090
[2024-05-12 07:00] VITALS: BP 179/87
[2024-05-12 07:45] LABS: Glucose - Point of Care 188 mg/dl (70-99)
[2024-05-12] MEDS: COZAAR 50 MG PO (09:33)
[2024-05-12] MEDS: NOVOLOG FLEXPEN-HIGH RESISTANCE 2 UNITS SC (09:33)
[2024-05-12] MEDS: CYMBALTA DELAYED RELEASE 60 MG PO (09:33)
[2024-05-12] MEDS: ASPIR LOW (ENTERIC COATED) 81 MG PO (09:33)
[2024-05-12] MEDS: DESENEX/MITRAZOL/ZEASORB 1 APPLIC TOPICAL ×2 (09:34→20:41)
[2024-05-12] MEDS: VITAMIN D3 (cholecalciferol) 25 MCG PO (09:34)
[2024-05-12] MEDS: LYRICA 150 MG PO ×2 (09:34→20:40)
[2024-05-12] MEDS: TRUSOPT 2% OPHTHALMIC SOLUTION 1 DROP BOTH EYES ×2 (09:34→20:54)
[2024-05-12] MEDS: OCEAN, SALINE MIST 2 SPRAYS NASAL ×3 (09:35→18:21)
[2024-05-12] MEDS: BACTROBAN 2% OINTMENT 1 APPLIC TOPICAL ×2 (09:36→20:41)
[2024-05-12 11:00] VITALS: BP 174/98
[2024-05-12 11:37] LABS: Glucose - Point of Care 174 mg/dl (70-99)
[2024-05-12 12:00] VITALS: BP 163/95
[2024-05-12] MEDS: NOVOLOG FLEXPEN-HIGH RESISTANCE SC ×2 (12:25→18:20)
[2024-05-12] MEDS: NORVASC 2.5 MG PO ×2 (13:07→20:40)
--- NOTE | 2024-05-12 13:36 | W.PN.POD ---
Today's Communication
Today's Communication
IV ABT per ID
Await vascular intervention -will watch 5th toe dry gangrene demarcate for now as it does not seem to be acutely infected, partial 2nd toe amputation Vs complete amputation
Right foot pain does not appear to be infectious, poss arthropathy/gout .
Continue wound care and following along with you
Assessment / Plan
-
DM2 with PAD
DM2 with DPN with LOPS
RA foot deformity-immunosuppressed on Actemra last dose 04/27/24
Multiple wounds as described above- healing
xray left 2nd toe- orig injury 11/08, xr now with progression of fracture to the middle phalynx with poss osteomyelitis, no erosive changes
Pain right foot and leg-XRAY negative
Cellulitis right wrist - +pain ortho following
Severe sepsis- IV abt/medicine and ID following closely, improving
Subjective
Chief Complaint
severe sepsis
Subjective
Resting comfortably, c/o pain to RLE ankle and foot with movement
Objective
Temp Pulse Resp BP Pulse Ox
98.0 F 93 22 144/64 92
05/12/24 11:00 05/12/24 12:00 05/12/24 11:00 05/12/24 13:07 05/12/24 12:00
05/11/24 07:08
05/11/24 07:08
Vital Signs and Lab results were reviewed.
Inspection: Inflammation
Review of Systems
Review of Systems
Review of Systems: No Chills, No Headache and No Nausea
Physical Exam
Physical Exam
General: No Apparent Distress, Conversant and Appears Chronically Ill
Musculoskeletal: No Edema (left leg) and Edema, Right Lower Extrem (erythema to the right forefoot, right ankle with pain to palpation)
Skin: Warm, Dry, Necrotic (left 5th toe- no odor, drainage, edema or erythema) and Wound (right heel, right 2nd toe- healing, granular no signs of infection. Left foot 2nd toe no erythema, chronic edema and deformity, dry gangrene now left 5th toe)
Neuro: AO x 3 and Protective Sensation Diminished
Vascular: Capillary Refill Delayed, Pedal Hair Absent and Skin Temperature Warm to Warm
Dorsalis Pedis: Intact (B/L feet)
Posterior Tibialis: Absent
[2024-05-12] MEDS: KCL 40 MEQ PO (14:47)
[2024-05-12] MEDS: KCL 270 MEQ IV (14:51)
[2024-05-12 15:00] VITALS: BP 169/86
[2024-05-12 17:05] LABS: Glucose - Point of Care 179 mg/dl (70-99)
--- NOTE | 2024-05-12 17:40 | PTCARENOTE ---
Assumed care of pt from previous nurse. Foot MD in to change pt dressings, requested air heel boots no longer be placed on pt. pt call mcclellan is within reach, pt rings samra. will cont to monitor
[2024-05-12] MEDS: ROCEPHIN IV (18:32)
[2024-05-12] MEDS: STERILE WATER FOR INJECTION IV (18:32)
[2024-05-12] MEDS: CLEOCIN IV (18:33)
[2024-05-12 19:43] VITALS: BP 187/84
[2024-05-12] MEDS: ROCEPHIN 2000 MG IV (20:42)
[2024-05-12] MEDS: STERILE WATER FOR INJECTION 20 ML IV (20:42)
[2024-05-12 21:39] LABS: Glucose - Point of Care 148 mg/dl (70-99)
[2024-05-12] MEDS: OCEAN, SALINE MIST NASAL (23:55)
[2024-05-12] MEDS: LANTUS SC (23:55)
[2024-05-12] MEDS: XALATAN OPHTHALMIC SOLUTION 1 DROP BOTH EYES (23:58)
[2024-05-13 00:26] LABS: Glucose - Point of Care 139 mg/dl (70-99)
[2024-05-13] MEDS: LANTUS SC (00:44)
[2024-05-13] MEDS: LANTUS 0.1 UNITS SC (00:45)
[2024-05-13 01:56] VITALS: BP 168/68
[2024-05-13] MEDS: CLEOCIN 50 IV ×2 (02:24→10:50)
[2024-05-13 03:22] VITALS: BP 159/74
--- NOTE | 2024-05-13 07:12 | W.PN.HOSP.TC ---
Today's Communication/Plan
-
Emergent transfer to [place], accepting physician Dr Haro, concern for right hand compartment syndrome necrotizing fascitis likely benefit fasciotomy debridement
Assessment / Plan
Assessment / Plan
General: No acute distress
HEENT: normocephalic atraumatic
Pulm: clear to auscultation b/l
Cardio: S1 S2 regular rate rhythm
Derm: right swelling tenderness significantly progressed unable to flex/extend fingers. Claw hand. significant pain passive flexion/extension fingers
Neuro: Lethargic but arousable conversant coherent
78-year-old female presented with fever and mental status change
X-ray of the foot-linear translucency of second middle phalanx associated with soft tissue swelling. Possible osteomyelitis
CT scan of the chest abdomen pelvis-IV contrast-mild to moderate fatty liver. No source of infection.
Head CT-stable exam mild chronic ischemic change and mild atrophy
Chest x-ray-mild to moderate opacity of the left lower lobe increased. Left lower lobe pneumonia versus atelectasis versus scarring.
Right wrist no acute fracture or malalignment. Small lucent lesions in the lateral aspect of the capitate. Not suspicious for osteomyelitis. Large amount of soft tissue edema
CT- There is diffuse subcutaneous edema throughout the right upper extremity extending from the shoulder through the hand. There is no discrete fluid collection. There is no subcutaneous gas. Findings may represent edema although superficial
infectious process could appear similar.Mildly prominent right axillary lymph nodes, possibly reactive.Partially visualized small right pleural effusion with adjacent atelectasis.
# Streptococcus bacteremia with severe sepsis.
Suspected source Toe ulcers/wounds. right arm source of infection less likely.
Blood cultures NGTD
LP was unsuccessful in the ER, source more likely pedal wounds as above
continued ceftriaxone Clinda as per ID
HUMBERTO worse. Vascular plans for arteriogram on on hold secondary to the low platelets (since improved).
ID and Podiatry eval appreciated.
# Edema, redness and pain on the right arm
CT with contrast no abscess, subcutaneous gas,
Orthopedic eval appreciated
05/13 right swelling tenderness significantly progressed unable to flex/extend fingers. Claw hand. significant pain passive flexion/extension fingers. patient notes numbness in fingers
Ortho ID eval significant concern possible compartment syndrome hand necrotizing fascitis surgical emergency, discussed with vascular surgery orthopedic logistics operations manager- no one available on staff to capable to provide surgical intervention, emergent
transfer recommended. Discussed with [facility] patient accepted for emergent transfer via Helicopter, accepting physician Dr. Haro, possible benefit emergent fasciotomy debridement right hand/arm.
# Thrombocytopenia with skin hemorrhage. Repeat INR normal. Hematology evaluation appreciated.. Hold Lovenox. HIT panel pending
# Hypokalemia-replace. Unclear where she is loosing. no diarrhea
# TME better. Passed swallow evaluation.
# Metabolic acidosis-lactic acidosis-trended down and normal.
# Mild anasarca. Patient was given Lasix yesterday
# Peripheral artery disease with left lower extremity angioplasty 2022 with chronic left foot wounds
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
# Diabetes normally uses Lantus 36 units and NovoLog 36 units [employer] IN [employer]GONOMICS [employer]ET[employer]
Lantus 20 units along with sliding scale coverage now
Hemoglobin A1c 7.9
# Rheumatoid arthritis on Actemra (Last dose on 04/27/2024.)
# Immunocompromised State
# Hypertension- losartan added low dose amlodipine with holding parameters
# Chronic elevation of the LFTs, acute elevation noted. CT with normal liver and gallbladder.Unclear cause for LFT elevation. No RUQ tenderness.
# Hyperlipidemia-Hold statin
# Depression anxiety- duloxetine
# History of fibromyalgia- Lyrica
# Hypoalbuminemia
# Cognitive dysfunction-worse in the past few months per sister
# History of melanoma surgery 2014
# Sleep apnea-noncompliant with CPAP. On CPAP here
# DVT prophylaxis-discontinued Lovenox. Added SCDs
# DNR
discussed with patient and patient's sister Mary
Total Critical Care Time__60___ minutes. I was immediately available to the patient and staff. I personally examined, reviewed labs, diagnostic images/reports, interpretations, treatment plans, discussed patient care with other providers and
family or caregivers (if patient is unable to make decisions), entered orders as appropriate and documented the medical record.
Anticipated Discharge: Today
Subjective/Interval History
-
Date of Service: May 13, 2024
significant right hand pain swelling unable to flex/extend fingers, significant pain passive flex/extend
Objective Data
-
Labs:
Laboratory Results
05/13/24
06:00
WBC Pending
Hgb Pending
Hct Pending
Plt Count Pending
Sodium Pending
Potassium Pending
Chloride Pending
Carbon Dioxide Pending
BUN Pending
Creatinine Pending
Glucose Pending
Calcium Pending
Vital Signs:
Vital Signs
Temp Pulse Resp BP Pulse Ox
97.2 F 84 16 159/74 95
05/13/24 03:22 05/13/24 03:22 05/13/24 03:22 05/13/24 03:22 05/13/24 03:22
I&O
05/12/24 05/13/24 05/14/24
06:59 06:59 06:59
Intake Total 350 / 350 1200 / 1200
Output Total 400 / 400
Balance 350 / 350 800 / 800
[2024-05-13 07:30] VITALS: BP 164/82
[2024-05-13 08:10] LABS: Glucose - Point of Care 139 mg/dl (70-99)
[2024-05-13 08:41] LABS: Hematocrit 33.6 % (37.0-47.0); Hemoglobin 11.1 g/dL (12.0-16.0); Mean Corpuscular Hgb 31.7 pg (27.0-31.0); Mean Platelet Volume 11.3 fL (7.4-10.4); Platelet Count 190 10^3/uL (130-400); Red Cell Dist. Width 14.5 % (11.5-14.5)
[2024-05-13 08:51] LABS: Blood Urea Nitrogen 13 mg/dl (7-17); Calcium 8.7 mg/dl (8.4-10.2); Carbon Dioxide 26 mmol/L (22-30); Chloride 102 mmol/L (98-107); Estimated Creatinine Clearance 88 ml/min; Glucose 164 mg/dl (70-99); Magnesium 1.8 mg/dl (1.6-2.3); Phosphorus 3.3 mg/dl (2.5-4.5); Potassium 4.3 mmol/L (3.5-5.1); Sodium 138 mmol/L (135-145); eGFR > 60.00
[2024-05-13] MEDS: LYRICA PO ×2 (08:55→09:05)
[2024-05-13] MEDS: VITAMIN D3 (cholecalciferol) 25 MCG PO (08:55)
[2024-05-13] MEDS: COZAAR 50 MG PO (08:55)
[2024-05-13] MEDS: NOVOLOG FLEXPEN-HIGH RESISTANCE SC ×2 (08:55→12:48)
[2024-05-13] MEDS: ASPIR LOW (ENTERIC COATED) 81 MG PO (08:55)
[2024-05-13] MEDS: DESENEX/MITRAZOL/ZEASORB 1 APPLIC TOPICAL (08:56)
[2024-05-13] MEDS: OCEAN, SALINE MIST 1 SPRAYS NASAL (08:56)
[2024-05-13] MEDS: TRUSOPT 2% OPHTHALMIC SOLUTION 1 DROP BOTH EYES (08:56)
[2024-05-13] MEDS: XALATAN OPHTHALMIC SOLUTION 1 DROP BOTH EYES (08:56)
[2024-05-13] MEDS: OCEAN, SALINE MIST 2 SPRAYS NASAL (08:57)
[2024-05-13] MEDS: CYMBALTA DELAYED RELEASE 60 MG PO (08:59)
[2024-05-13] MEDS: NORVASC 2.5 MG PO (08:59)
[2024-05-13] MEDS: BACTROBAN 2% OINTMENT 1 APPLIC TOPICAL (10:51)
--- NOTE | 2024-05-13 11:07 | CM ---
Addendum entered by Suzan Wing 05/13/24 16:25:
Patient for urgent transfer to [place] via helicopter.
Original Note:
CM reviewed chart, spoke with Mary Ann from [facility], will have a bed for patient when stable for discharge. Podiatry following, wound care, IV antibiotics. CM will continue to follow for all discharge planning needs.
Plan; [facility] when medically stable.
--- NOTE | 2024-05-13 12:00 | W.PN.ID1 ---
Date of Service
Date of Service: May 13, 2024
Today's Communication
Continue antibiotics.
Assessment / Plan
# Group A streptococcus bacteremia
# left foot wounds - likely source of bacteremia
# Right forearm / hand SSTI with concern for deep-seated infection/necrotizing fasciitis
# Leukocytosis trending up, + bandemia
#Severe LLE PAD with ischemic 5th toe - TBI now worse 0.2, compared to 0.73 in November 2023
# Thrombocytopenia improving
# s/p septic shock
- Would have Ortho re-eval today.
Prior imaging noted significant subcutaneous edema. No gas appreciated.
- gas in tissues not necessary for necrotizing fasciitis to be present.
- Continue short course (3 days) clindamycin 900mg IV q6H as toxin inhibitor.
- Continue Ceftriaxone 2g IV q24 (d#8)
- Follow clinically
- Trend WBC
# Conditions PROCESS PROJECT ENGINEER
DM
HTN
HLD
RA on Actemra, last received 04/27/24
ALETHEA
Chronic left foot wounds
PAD s/p LLE angioplasty (2022)
R 4th, 5th toes hammertoe repair (2018)
R 4th metatarsal osteo s/p resection (2018)
R TKR
Lumbar surgery
Chief Complaint
-: Clinical Sepsis and Bacteremia
Subjective / Review of Systems
Patient seen and examined. Reports ongoing discomfort of her right hand/forearm.
Review of Systems: No Fever and No Chills
Vital Signs / Physical Exam
Vital Signs
Vital Signs
Temp Pulse Resp BP Pulse Ox
97.4 F 87 20 164/82 97
05/13/24 07:30 05/13/24 07:30 05/13/24 07:30 05/13/24 07:30 05/13/24 07:30
Physical Exam
Constitutional: Comfortable, Acutely Ill, Chronically Ill and Non-toxic
Eyes: No Conjunctival Hemorrhage and Sclera Anicteric
Cardiovascular: S1/S2; Negative S3/S4
Pulmonary: Non Labored
Gastrointestinal: Soft and Non Tender
Extremities: Edema (Right forearm/hand), Erythema (Right forearm/hand with ecchymotic discolorations in the areas.) and Other (Right forearm feels 'full'. Limited ability to extend or flex fingers (active or passive) without significant forearm
discomfort.)
Skin: Warm and Dry
Neurological: Awake and Alert
Psychological: Calm
Objective Data
Lab Data
Lab Results
05/13/24 07:51
05/13/24 07:51
PT 13.7 Sec (11.4-14.6) 05/11/24 07:08
INR 1.07 05/11/24 07:08
APTT 22.4 Sec (23.4-35.0) L 05/11/24 07:08
Estimated Creat Clear 88 ml/min 05/13/24 07:51
Lactic Acid 1.9 mmol/L (0.7-2.0) 05/07/24 20:35
Total Bilirubin 0.6 mg/dl (0.2-1.3) 05/11/24 07:08
AST 191 U/L (14-36) H 05/11/24 07:08
ALT 154 U/L (0-35) H 05/11/24 07:08
Alkaline Phosphatase 409 U/L (38-126) H 05/11/24 07:08
Most recent labs reviewed.
Micro Results:
05/08/24 04:41 Blood Culture - Final
Blood/Venous No Growth - Final Report
05/07/24 10:36 Blood Culture - Final
Blood/Venous No Growth - Final Report
05/06/24 10:54 Blood Culture - Final
Blood/Venous Streptococcus pyogenes
Gram Stain - Final
05/06/24 10:54 Blood Culture - Final
Blood/Venous Streptococcus pyogenes
Gram Stain - Final
05/06/24 21:36 MRSA Screen - Final
Nose No Methicillin Resistant Staphylococcus aureus isolated.
05/06/24 10:54 Influenza Types A & B (DUSTIN) - Final
Nasal Swab Negative for Influenza A & B, NAAT
Negative results must be combined with clinical observations
and patient history.
Nucleic Acid Amplification test (NAAT)performed on the
[employer] platform.
05/06/24 CXR: There is mild stable linear interstitial or airspace disease at the left lung base which may be minimal pneumonia or subsegmental atelectasis
There is subsegmental atelectasis at the right lung base
05/06/24 CT C/A/P: No CT evidence to indicate a source of infection.
05/06/24 Left Foot XRAY: There is linear lucency traversing the second middle phalanx, which has developed since prior examination. Associated soft tissue swelling. Possible osteomyelitis, though relatively well-defined linear configuration would be
unusual. This may also be postsurgical in nature proper clinical setting.
05/10/24 CT RUE: There is diffuse subcutaneous edema throughout the right upper extremity extending from the shoulder through the hand. There is no discrete fluid collection. There is no subcutaneous gas. Findings may represent edema although
superficial infectious process could appear similar. Mildly prominent right axillary lymph nodes, possibly reactive.
Care Review
Plan reviewed with: Physician (Hospitalist)
[2024-05-13 12:10] LABS: Glucose - Point of Care 139 mg/dl (70-99)
[2024-05-13] MEDS: OCEAN, SALINE MIST NASAL (13:00)
--- NOTE | 2024-05-13 14:05 | W.PN.UPDATE ---
Update Note
Progress Note Update
78-year-old female who lives in [facility]. She was admitted to [facility] on May 06. She has a history of peripheral arterial disease, type 2 diabetes mellitus on insulin, hypertension, and osteomyelitis. Her
admitting diagnosis was streptococcal bacteremia/sepsis. Over the last 6 to 12 hours she has developed increasing right hand, wrist, and forearm pain, swelling, ecchymosis, and blistering. She was seen today by Antwan Pagan from the infectious
disease service and he is concerned patient is developing necrotizing fasciitis.
I evaluated patient and she has pain with minimal passive flexion and extension of the digits of her right upper extremity. There also is diffuse erythema and ecchymosis with blistering of the skin. Minimal active motion of the digits causes
significant pain.
Possible necrotizing fasciitis of 78-year-old female with underlying group A streptococcal bacteremia. This patient has been hospitalized for the last 7 days and has had no recent Orthopedic Bony injury to the right upper extremity. I have
discussed her case with Dr. Antwan Pagan. We concur this patient needs emergent surgical evaluation / treatment by general surgery or possibly vascular surgery.
I spoke to Dr. Starkey manager completions from vascular surgery and she was unwilling to evaluate this patient. Her, and her colleague Dr. Yan have stated that this is outside the scope of their practice. They recommended calling general surgery, which I
did, and Dr. Rock stated he has no recent training in upper extremity surgery and taking care of this patient would not be within the scope of his practice. [facility] does not have a hand/upper extremity surgeon on-call at this time. The
hospitalist has reached out to Dr. Quinones who is unavailable. I have also tried to call Dr. Ulises Hall and Dr. Josh Gonzalez (who are not obligated to be available at this time) and received no answer.
I have done the best to coordinate assistance to Dr. Marion with this emergently ill patient. This patient has been in the hospital for 1 week, and has no underlying orthopedic right upper extremity injury. A patient of this type at [facility] is the responsibility of general/vascular surgery. (As per previous discussions with hospitalist and the former Instrumentation And Controls Technician Pranav Coombs MD). Unfortunately, current general/vascular surgery on-call providers do not feel well
equipped to provide care to this patient. We have exhausted options here at [facility] to provide emergent surgical evaluation and care of this patient. Dr. Marion, is now in the process of arranging emergent transfer patient to
[place], General Surgery at [facility], who has agreed to accept patient in transfer.
--- NOTE | 2024-05-13 14:42 | W.DCSUMMARY ---
Discharge Summary
Discharge Data
Date of Admission: 05/06/24
Date of Discharge: 05/13/24
-
Pending Results: Yes
Additional Pending Results:
official culture results
Discharge Plan
-
Patient Disposition: [facility]
Condition: Critical
Discharge Orders:
Discharge Patient (As Directed); Ordered 05/13/24
Ordered By: Chris Marion
Discharge Date and Time
Print Language: KYRGYZ
--- NOTE | 2024-05-13 14:50 | W.PN.UPDATE ---
Update Note
Progress Note Update
For reasons unclear to me, I was asked to evaluate the patient for upper extremity pain. Her motor in her intrinsic hand muscles and wrists is limited by pain but is in tact. Sensation in tact. +triphasic radial, ulnar, and palmar arch signals.
Therefore no sign of vascular ischemia or etiology. I would recommend hand surgery/ortho surgery for further management, as hand surgery is NOT a subspecialty of vascular surgery, nor is it within our scope of practice as vascular surgeons (as
discussed multiple conversations with the materials branch chief).
--- NOTE | 2024-05-13 16:26 | PTCARENOTE ---
patient transferred to [facility]. Report give to [facility].
--- NOTE | 2024-05-13 20:24 | W.PN.UPDATE ---
Update Note
Progress Note Update
I was contacted by phone by Chris on this patient for concern of possible upper extremity compartment syndrome of the hand, wrist and forearm as well as possible necrotizing fasciitis. I explained that this is outside of my scope of practice. I
recommended discussing with vascular surgery and orthopedics if there is no hand surgeon available or consider urgent transfer to higher level of care. He said okay. I received another call from Chris while in the OR with another patient, who
was in the process of being intubated. He explained that he spoke with Edison, who was giving him pushback, saying that this patient should be evaluated and debrided here. He had spoken to vascular surgery, who explained that this was outside
of their scope of practice. I reiterated that it is also outside of my scope of practice. I apologized, but I was unable to go evaluate the patient and help him with disposition as my surgery for another patient had already started.
After I scrubbed, I received a call from Dr. Herzog, who had evaluated this patient. He explained that there is an elevated concern for compartment syndrome as well as possible necrotizing fasciitis. I explained that this is outside of my scope
of practice and a condition for which I was not trained to treat. Therefore, I recommended immediate transfer to a higher level of care if no other surgeon at [facility] was available. I also explained that I was in the middle of a surgery and
therefore unable to evaluate the patient myself and assist with the patient's disposition.
== END 2024-05-13 16:46 | disposition short-term general hospital (02) | DRG 871 ==
LOC: 4 WEST ACU 17:09
PROVIDERS: Hospitalist; Internal Medicine Critical Care Medicine; Nurse Practitioner; Physician Assistant; Registered Nurse; Student in an Organized Health Care Education/Training Program; ADMITTING PHYSICIAN Hospitalist; ATTENDING PHYSICIAN Internal Medicine; CONSULT PHYSICIAN Internal Medicine Hematology & Oncology; CONSULT PHYSICIAN Orthopaedic Surgery; CONSULT PHYSICIAN Podiatrist Foot & Ankle Surgery; CONSULT PHYSICIAN Surgery Vascular Surgery; EMERGENCY PHYSICIAN Emergency Medicine; FAMILY PHYSICIAN Internal Medicine Geriatric Medicine; OTHER PHYSICIAN Internal Medicine Critical Care Medicine; OTHER PHYSICIAN Internal Medicine Infectious Disease; OTHER PHYSICIAN Podiatrist Foot & Ankle Surgery
PROC: 5A09357 Assistance with Respiratory Ventilation, Less than 24 Consecutive Hours, Continuous Positive Airway Pressure (ICD-10-PCS; 2024-05-08)
DX: A40.8 Other streptococcal sepsis (principal); G92.8 Other toxic encephalopathy; J96.01 Acute respiratory failure with hypoxia; M72.6 Necrotizing fasciitis; E87.20 Acidosis, unspecified; L97.419 Non-pressure chronic ulcer of right heel and midfoot with unspecified severity; L97.525 Non-pressure chronic ulcer of other part of left foot with muscle involvement without evidence of necrosis; Z66 Do not resuscitate; L03.113 Cellulitis of right upper limb; D84.821 Immunodeficiency due to drugs; D68.2 Hereditary deficiency of other clotting factors; E11.52 Type 2 diabetes mellitus with diabetic peripheral angiopathy with gangrene; I70.245 Atherosclerosis of native arteries of left leg with ulceration of other part of foot; E78.00 Pure hypercholesterolemia, unspecified; I10 Essential (primary) hypertension; K21.9 Gastro-esophageal reflux disease without esophagitis; M06.9 Rheumatoid arthritis, unspecified; E86.0 Dehydration; E11.65 Type 2 diabetes mellitus with hyperglycemia; G47.33 Obstructive sleep apnea (adult) (pediatric); D69.6 Thrombocytopenia, unspecified; R65.20 Severe sepsis without septic shock; L97.519 Non-pressure chronic ulcer of other part of right foot with unspecified severity; E11.42 Type 2 diabetes mellitus with diabetic polyneuropathy; E87.6 Hypokalemia; D64.9 Anemia, unspecified; F32.A Depression, unspecified; F41.9 Anxiety disorder, unspecified; M79.7 Fibromyalgia; D69.1 Qualitative platelet defects; Z79.69 Long term (current) use of other immunomodulators and immunosuppressants; Z11.52 Encounter for screening for COVID-19; Z79.4 Long term (current) use of insulin; Z79.82 Long term (current) use of aspirin; Z79.899 Other long term (current) drug therapy; Z96.651 Presence of right artificial knee joint
CPT/HCPCS: 51701; 62270; 70450; 71045; 71046; 71260; 73060; 73090; 73110; 73201; 73620; 73630; 74177; 80048; 80053; 81003; 81015; 82550; 82805; 82962; 83036; 83605; 83735; 84100; 85025; 85027; 85610; 85730; 86022; 86140; 87040; 87070; 87205; 87502; 87811; 92526; 92610; 93005; 93306; 93922; 93925; 94660; 96361; 96365; 96367; 96375; 97163; 97167; 97530; 97535; 99291; 99292; Q9967